=== PATIENT | male | born 1950 | race Caucasian/White ===

== ENCOUNTER 2025-06-15 21:46 | Inpatient (IN) | payer OTHER ==
[~2025-06-15] VITALS: Ht 188 cm; Wt 124.0 kg
--- NOTE | 2025-06-15 22:16 | ED.PDOC ---
History of Present Illness HPI Comments 75-year-old male who came to ER via EMS for urinary issues. Patient has a history of hypertension, diabetes and dyslipidemia. States for the past few days he has been having generalized weakness and urinary incontinence. Patient went to [place] urgent [facility] earlier, diagnostic tests were done, patient notes elevated troponin levels. Patient denies any chest pains or shortness a breath. Blood pressure upon arrival was 157/85 mm Hg Chief Complaint: Urinary Time Seen by MD: 22:15 Reviewed Notes: Nurses Notes Information Source: Patient Mode of Arrival: EMS Severity: Moderate Timing: Days Duration: Intermittent Prehospital treatment: None Past Medical History PAST MEDICAL HISTORY: DM, High Lipids, HTN Surgical History: Denies all surgeries Family History Family History: Reviewed,noncontributory to illness Social History Smoker: Non-Smoker Alcohol: Denies ETOH Use Drugs: Denies Drug Use Lives In: Home Constitutional: denies: chills, diaphoresis, fatigue, fever, malaise, sweats, weakness, others EENTM: denies: blurred vision, double vision, ear bleeding, ear discharge, ear drainage, ear pain, ear ringing, eye pain, eye redness, hearing loss, mouth pain, mouth swelling, nasal discharge, nose bleeding, nose congestion, nose pain, photophobia, tearing, throat pain, throat swelling, voice changes, others Respiratory: denies: cough, hemoptysis, orthopnea, SOB at rest, shortness of breath, SOB with excertion, stridor, wheezing, others Cardiovascular: denies: chest pain, dizzy spells, diaphoresis, Dyspnea on exertion, edema, irregular heart beat, left arm pain, lightheadedness, palpitations, PND, syncope, others Gastrointestinal: denies: abdomen distended, abdominal pain, blood streaked bowels, constipated, diarrhea, dysphagia, difficulty swallowing, hematemesis, melena, nausea, poor appetite, poor fluid intake, rectal bleeding, rectal pain, vomiting, others Genitourinary: reports: incontinence; denies: burning, dysuria, flank pain, frequency, hematuria, penile discharge, penile sore, pain, testicle pain, testicle swelling, urgency, others Neurological: reports: weakness; denies: dizziness, fainting, headache, left sided numbness, left sided weakness, numbness, paresthesia, pre-existing deficit, right sided numbness, right sided weakness, seizure, speech problems, tingling, tremors, others Musculoskeletal: denies: back pain, gout, joint pain, joint swelling, muscle pain, muscle stiffness, neck pain, others Integumetry: denies: bruises, change in color, change in hair/nails, dryness, laceration, lesions, lumps, rash, wounds, others Allergic/Immunocompromised: denies: Difficulty Healing, Frequent Infections, Hives, Itching, others Hematologic/Lymphatic: denies: anemia, blood clots, easy bleeding, easy bruising, swollen glands, others Endocrine: denies: excessive hunger, excessive sweating, excessive thirst, excessive urination, flushing, intolerance to cold, intolerance to heat, unexplained weight gain, unexplained weight loss, others Psychiatric: denies: anxiety, bipolar disorder, depression, hopeless, panic disorder, schizophrenia, sleepless, suicidal, others Physical Exam General Appearance: No Apparent Distress, Normal HEENT: Normal ENT Inspection, Pharynx Normal, TMs Normal Neck: Full Range of Motion, Non-Tender, Normal, Normal Inspection Respiratory: Chest Non-Tender, Lungs Clear, No Accessory Muscle Use, No Respiratory Distress, Normal Breath Sounds Cardiovascular: No Edema, No JVD, No Murmur, No Gallop, Normal Peripheral Pulses, Regular Rate/Rhythm Breast Exam: Deferred Gastrointestinal: No Organomegaly, Non Tender, No Pulsatile Mass, Normal Bowel Sounds, Soft Genitalia: Deferred Pelvic: Deferred Rectal: Deferred Extremities: No calf tenderness, Normal capillary refill, Normal inspection, Normal range of motion, Non-tender, No pedal edema Musculoskeletal : Apperance: Normal Neurologic: Alert, e d tech II-XII nml as Tested, No Motor Deficits, Normal Affect, Normal Mood, No Sensory Deficits Cerebellar Function: Normal Reflexes: Normal Skin: Dry, Normal Color, Warm Lymphatic: No Adenopathy Was a procedure done? Was a procedure done?: No Differential Dx Considerations may include: Urinary tract infection, urinary incontinence, NSTEMI, anxiety X-Ray, Labs, Meds, VS Vital Signs Date Time Temp Pulse Resp B/P (MAP) Pulse Ox O2 Delivery O2 Flow Rate FiO2 06/15/25 21:50 85 06/15/25 21:48 98.6 90 16 148/110 96 98.6 Lab Test 06/16/25 01:14 06/16/25 00:20 06/15/25 22:10 Range/Units Troponin I High Sensitivity 89 *H 83 *H 97 *H </=54 ng/L White Blood Count 6.8 4.4-10.8 10^3/uL Red Blood Count 4.45 L 4.5-5.90 10^6/uL Hemoglobin 13.8 13.5-17.5 g/dL Hematocrit 39.9 L 41.0-53.0 % Mean Corpuscular Volume 89.6 80.0-100.0 fL Mean Corpuscular Hemoglobin 31.0 28.0-32.0 pg Mean Corpuscular Hemoglobin Concent 34.6 32.0-36.0 g/dL Red Cell Distribution Width 15.0 H 11.8-14.3 % Platelet Count 183 140-450 10^3/uL Mean Platelet Volume 7.3 6.9-10.8 fL Neutrophils (%) (Auto) 56.2 37.0-80.0 % Lymphocytes (%) (Auto) 31.1 10.0-50.0 % Monocytes (%) (Auto) 10.6 0.0-12.0 % Eosinophils (%) (Auto) 1.7 0.0-7.0 % Basophils (%) (Auto) 0.4 0.0-2.0 % Neutrophils # (Auto) 3.8 1.6-8.6 10 ^3/uL Lymphocytes # (Auto) 2.1 0.4-5.4 10 ^3/uL Monocytes # (Auto) 0.7 0-1.3 10 ^3/uL Eosinophils # (Auto) 0.1 0-0.8 10 ^3/uL Basophils # (Auto) 0 0-0.2 10 ^3/uL Nucleated Red Blood Cells 0.0 % Sodium Level 142 136-145 mmol/L Potassium Level 3.7 3.5-5.1 mmol/L Chloride Level 105 98-107 mmol/L Carbon Dioxide Level 27 20-31 mmol/L Anion Gap 10 5-15 Blood Urea Nitrogen 19 9-23 mg/dL Creatinine 1.46 H 0.700-1.30 mg/dL Glomerular Filtration Rate Calc 49 >90 mL/min BUN/Creatinine Ratio 13.0 10.0-20.0 Serum Glucose 124 H 74-106 mg/dL Calcium Level 9.2 8.7-10.4 mg/dL Total Bilirubin 0.8 0.2-1.0 mg/dL Aspartate Amino Transferase (AST) 23 13-40 U/L Alanine Aminotransferase (ALT) 33 7-40 U/L Alkaline Phosphatase 84 46-116 U/L Total Protein 7.5 5.7-8.2 g/dL Albumin 4.6 3.2-4.8 g/dL Time of 1ST Reevaluation: 22:07 Reevaluation 1ST: Unchanged Patient Education/Counseling: Diagnosis, Treatment Family Education/Counseling: No Family Present Sepsis focused exam: focus exam completed, time: (0030) SEPSIS Sepsis Screen Physician Orders Urinalysis (06/15/25 22:05) Electrocardigram (06/15/25 22:05) Lactic Acid W/ Reflex Order (06/16/25 02:13) Blood Culture (06/16/25 02:13) Ceftriaxone 2gm/50ml D5w (Rocephin 2gm/5 (06/16/25 02:15) Vital Signs Date Time Temp Pulse Resp B/P (MAP) Pulse Ox O2 Delivery O2 Flow Rate FiO2 06/15/25 21:50 85 06/15/25 21:48 98.6 90 16 148/110 96 98.6 Laboratory Tests Test 06/15/25 22:10 White Blood Count 6.8 10^3/uL (4.4-10.8) Departure 1 Departure Time of Disposition: 02:18 Impression: Primary Impression: UTI (urinary tract infection) Additional Impression: Intermediate coronary syndrome Disposition: ADMITTED INPATIENT Admit to: Tele Condition: Guarded Discharged With: Self Comments 75-year-old male sent from the [place] [facility]. They found a UTI. They checked labs because he was feeling weak and noted that his troponin was elevated. The troponin and troponin is elevated at [facility]. I contacted [facility] and they reviewed the case in authorized the patient to be admitted at [facility]. I suspect possible secondary intermediate coronary syndrome with UTI. Patient was given IV fluids and IV Rocephin and aspirin. Critical Care Note Critical Care Time?: Yes (35 min-critical care time only) Critical care comment: Total critical care time: Approximately 36 minutes Due to a high probability of clinically significant, life threatening deterioration, the patient required my highest level of preparedness to intervene emergently and I personally spent this critical care time directly and personally managing the patient. This critical care time included obtaining a history; examining the patient; pulse oximetry; ordering and review of studies; arranging urgent treatment with development of a management plan; evaluation of patient's response to treatment; frequent reassessment; and, discussions with other providers. This critical care time was performed to assess and manage the high probability of imminent, life-threatening deterioration that could result in multi-organ failure. It was exclusive of separately billable procedures and treating other patients. Stability Stability form required: No Heart Score Heart Score: Heart Score Response (Comments) Value History Slightly Suspicious 0 EKG Normal 0 Age >65 2 Risk Factors 1 or 2 risk factors 1 Troponin 1-2 x's Normal limit 1 Total 4 I personally scribed for LARISSA LENTZ MD ([email or web address]) on 06/15/25 at 22:16. Electronically submitted by Thad Meier ([email or web address]). LARISSA LENTZ MD Jun 15, 2025 22:16
[2025-06-15 22:30] LABS: Hematocrit 39.9 % (41.0-53.0); Hemoglobin 13.8 g/dL (13.5-17.5); Mean Corpuscular Hemoglobin 31.0 pg (28.0-32.0); Mean Corpuscular Volume 89.6 fL (80.0-100.0); Nucleated Red Blood Cells % 0.0 %
[2025-06-15 22:51] LABS: Alanine Aminotransferase 33 U/L (7-40); Albumin 4.6 g/dL (3.2-4.8); Alkaline Phosphatase 84 U/L (46-116); Anion Gap 10 (5-15); BUN/Creatinine Ratio 13.0 (10.0-20.0); Bilirubin, Total 0.8 mg/dL (0.2-1.0); Blood Urea Nitrogen 19 mg/dL (9-23); Calcium 9.2 mg/dL (8.7-10.4); Carbon Dioxide 27 mmol/L (20-31); Chloride 105 mmol/L (98-107); Potassium 3.7 mmol/L (3.5-5.1); Sodium 142 mmol/L (136-145); Total Protein 7.5 g/dL (5.7-8.2)
[2025-06-15 22:55] LABS: Glucose 124 mg/dL (74-106)
[2025-06-15 23:45] VITALS: O2SAT 96
[2025-06-16] MEDS: SODIUM CHLORIDE 0.9% 1,000 ML IV ONE (02:50)
[2025-06-16] MEDS: cefTRIAXone 2GM/50ML D5W 50 ML IV ONE (02:59)
--- NOTE | 2025-06-16 05:16 | ECG ---
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
[2025-06-16] MEDS ORDERED: ONDANSETRON HCL 4 MG/2 ML VIAL IV PRN (05:30)
[2025-06-16] MEDS ORDERED: DOCUSATE SOD 100 MG CAP PO PRN (05:30)
[2025-06-16] MEDS ORDERED: NITROGLYCERIN 0.4 MG SL TAB SL PRN (05:30)
[2025-06-16] MEDS ORDERED: HYDROcodone-ACET 5/325MG TAB PO PRN (05:30)
[2025-06-16] MEDS ORDERED: DEXTROSE (50%) 50ML SYRG IV PRN (05:30)
[2025-06-16] MEDS ORDERED: MORPHINE SULFATE INJ 2 MG/ml SYRG IV PRN (05:30)
[2025-06-16] MEDS ORDERED: ACETAMINOPHEN 325 MG TAB PO PRN (05:30)
--- NOTE | 2025-06-16 05:35 | DVHHP2 ---
History of Present Illness Reason for Visit: Intermediate coronary syndrome History of Present Illness The patient is a 75-year-old male morbidly obese with past medical history of diabetes mellitus, hyperlipidemia, thyroid disease, and hypertension who presented to [facility] ED with complaint of urinary incontinence and generalized weakness. Patient reports he went to [place] urgent care earlier, diagnosed chest were done, noted elevated troponin levels. Patient was seen and evaluated in the ED, laboratory data shows WBC 6.8, platelets 183, sodium 142, potassium 3.7, BUN 19, creatinine 1.48, glucose 124, calcium 9.2, troponin 97, blood pressure 148/92, heart rate 85, temperature 98.6 F, O2 saturation 96% on room air. Please see medication orders section in the computer. On my assessment, patient denied chest pain, no headache, no dizziness, no diaphoresis, no shortness of breaths, no abdominal pain, no dysuria, no nausea, no vomiting, no fever, no chills. Patient was admitted for further evaluation and medical management. Past Medical History DM, High Lipids, HTN Past Surgical History Denies all surgeries Family History Reviewed, noncontributory to the management of this case. Past Social History The patient lives at home, denies smoking, alcohol or illicit drugs abuse. Review of Systems Constitutional: Yes: Weakness; No: Fever, Chills, Sweats, Malaise, Other Eyes: No: Pain, Vision change, Conjunctivae inflammation, Eyelid inflammation, Other, Redness ENT: No: Ear pain, Ear discharge, Nose pain, Nose discharge, Nose congestion, Mouth pain, Mouth swelling, Throat pain, Throat swelling, Other Respiratory: No: Cough, Dry, Shortness of breath, SOB with excertion, Wheezing, Hemoptysis, Pleuritic Pain, Sputum, Wheezing, Other Cardiovascular: No: Chest Pain, Palpitations, Orthopnea, Paroxysmal Noc. Dyspnea, Edema, Lt Headedness, Other Gastrointestinal: No: Nausea, Vomiting, Abdominal Pain, Diarrhea, Constipation, Melena, Hematochezia, Other Genitourinary: No Dysuria, No Frequency; Incontinence; No Hematuria, No Retention, No Other Musculoskeletal: No: other, neck pain, shoulder pain, arm pain, back pain, hand pain, leg pain, foot pain Skin: No: Rash, Lesions, Jaundice, Bruising, Other Neurological: No: Weakness, Numbness, Incoordination, Change in speech, Confusion, Seizures, Other Exam Vital Signs Vital Signs Date Time Temp Pulse Resp B/P (MAP) Pulse Ox O2 Delivery O2 Flow Rate FiO2 06/15/25 23:45 96 Room Air* 0 21 06/15/25 21:50 85 06/15/25 21:48 98.6 16 148/110 98.6 General Appearance: Alert, Oriented X3, Cooperative, No acute distress HEENT: Atraumatic, PERRLA, EOMI, Mucous membr. moist/pink Respiratory: Normal air movement Cardiovascular: Regular rate, Normal S1, Normal S2, No murmurs Abdominal: Normal bowel sounds, Soft, No tenderness, No hepatospenomegaly, No masses Extremities: No clubbing, No cyanosis, No edema, Normal pulses, No tenderness/swelling Skin: No rashes, No breakdown, No significant lesion Neuro: Normal speech, Normal tone, Sensation intact, Cranial nerves 3-12 NL, Reflexes 2+, Other (Generalized weakness) Psych/Mental Status: Mental status NL, Mood NL Labs/Xrays Labs Test 06/16/25 02:36 06/16/25 01:14 06/15/25 22:10 Range/Units Lactic Acid Level 0.8 0.4-2.0 mmol/L Troponin I High Sensitivity 89 *H </=54 ng/L White Blood Count 6.8 4.4-10.8 10^3/uL Red Blood Count 4.45 L 4.5-5.90 10^6/uL Hemoglobin 13.8 13.5-17.5 g/dL Hematocrit 39.9 L 41.0-53.0 % Mean Corpuscular Volume 89.6 80.0-100.0 fL Mean Corpuscular Hemoglobin 31.0 28.0-32.0 pg Mean Corpuscular Hemoglobin Concent 34.6 32.0-36.0 g/dL Red Cell Distribution Width 15.0 H 11.8-14.3 % Platelet Count 183 140-450 10^3/uL Mean Platelet Volume 7.3 6.9-10.8 fL Neutrophils (%) (Auto) 56.2 37.0-80.0 % Lymphocytes (%) (Auto) 31.1 10.0-50.0 % Monocytes (%) (Auto) 10.6 0.0-12.0 % Eosinophils (%) (Auto) 1.7 0.0-7.0 % Basophils (%) (Auto) 0.4 0.0-2.0 % Neutrophils # (Auto) 3.8 1.6-8.6 10 ^3/uL Lymphocytes # (Auto) 2.1 0.4-5.4 10 ^3/uL Monocytes # (Auto) 0.7 0-1.3 10 ^3/uL Eosinophils # (Auto) 0.1 0-0.8 10 ^3/uL Basophils # (Auto) 0 0-0.2 10 ^3/uL Nucleated Red Blood Cells 0.0 % Sodium Level 142 136-145 mmol/L Potassium Level 3.7 3.5-5.1 mmol/L Chloride Level 105 98-107 mmol/L Carbon Dioxide Level 27 20-31 mmol/L Anion Gap 10 5-15 Blood Urea Nitrogen 19 9-23 mg/dL Creatinine 1.46 H 0.700-1.30 mg/dL Glomerular Filtration Rate Calc 49 >90 mL/min BUN/Creatinine Ratio 13.0 10.0-20.0 Serum Glucose 124 H 74-106 mg/dL Calcium Level 9.2 8.7-10.4 mg/dL Total Bilirubin 0.8 0.2-1.0 mg/dL Aspartate Amino Transferase (AST) 23 13-40 U/L Alanine Aminotransferase (ALT) 33 7-40 U/L Alkaline Phosphatase 84 46-116 U/L Total Protein 7.5 5.7-8.2 g/dL Albumin 4.6 3.2-4.8 g/dL SEPSIS Sepsis Screen Date sepsis recognized/suspect: Jun 15, 2025 Time Sepsis recognized/suspect: 2147 Recent Procedure: No On Antibiotic Therapy: No Respiratory Rate >20: No Heart Rate >90: No Temp<36 C (96.8 F) or >38.3 C: No SBP <90 or MAP <65 mmHG: No New Acute Mental Status Change: No Is the patient on CPAP, BIPAP,: No Physician Orders Urinalysis (06/15/25 22:05) Blood Culture (06/16/25 02:13) Troponin-I Hs (06/16/25 06:00) Urine Bacterial Culture (06/16/25 05:18) Complete Blood Count (06/16/25 05:18) Comprehensive Metabolic Panel (06/16/25 05:18) Thyroid Stimulating Hormone (06/16/25 05:18) Ceftriaxone Ivpb Rocephin (06/16/25 09:00) Amlodipine Tablet (Norvasc Tablet) (06/16/25 10:00) Metoprolol Tartrate Tablet (Lopressor Ta (06/16/25 10:00) Atorvastatin (Lipitor) (06/16/25 22:00) Levothyroxine Tablet (Synthroid Tablet) (06/16/25 06:00) Lisinopril Tablet (Zestril Tablet) (06/16/25 10:00) Consistent Carb(Ccho)Diabetes (06/16/25 Breakfast) Glucose Blood (Accu-Chek Comfort Curve T (06/16/25 07:00) Mild Sliding Scale (06/16/25 07:00) Dextrose 50% Syringe (06/16/25 05:30) Admit (06/16/25 05:18) Allergies (06/16/25 05:18) Code Status (06/16/25 05:18) Sodium Chloride Lock (Saline Lock Ns) (06/16/25 06:00) Oxygen Per Hour (06/16/25 05:18) Hydrocodone-Acet 5/325mg Tab ([place] 5/32 (06/16/25 05:30) Ondansetron Hcl (Zofran) (06/16/25 05:30) Docusate Sodium Capsule (Colace Capsule) (06/16/25 05:30) Complete Blood Count (06/17/25 04:00) Comprehensive Metabolic Panel (06/17/25 04:00) Condition: Serious (06/16/25 05:18) Acetaminophen Tablet (Tylenol Tablet) (06/16/25 05:30) Bedrest With Bathroom Privileg (06/16/25 05:18) Sequential Compression Device (06/16/25 ) Nitroglycerin Sublingual (Ntrostat Subli (06/16/25 05:30) Morphine Sulfate Injection (06/16/25 05:30) Notify Md Of Changes From Base (06/16/25 05:18) Emergency Dysrhythmia Protocol (06/16/25 05:18) Oxygen By Nasal Cannula (06/16/25 05:18) Vital Signs Date Time Temp Pulse Resp B/P (MAP) Pulse Ox O2 Delivery O2 Flow Rate FiO2 06/15/25 23:45 96 Room Air* 0 21 06/15/25 21:50 85 06/15/25 21:48 98.6 90 16 148/110 96 98.6 Laboratory Tests Test 06/15/25 22:10 06/16/25 02:36 White Blood Count 6.8 10^3/uL (4.4-10.8) Lactic Acid Level 0.8 mmol/L (0.4-2.0) Medications Medications Dose Ordered Sig/Arsenio Route Start Time Stop Time Status Last Admin Dose Admin Aspirin 162 mg ONCE ONCE PO 06/16/25 00:45 06/16/25 00:46 DC 06/16/25 02:59 162 MG Ceftriaxone Sodium/Dextrose 50 ml @ 50 mls/hr ONCE ONCE IV 06/16/25 02:15 06/16/25 03:14 DC 06/16/25 02:59 50 MLS/HR Sodium Chloride 1,000 ml @ 1,000 mls/hr Q1H ONCE IV 06/16/25 02:30 06/16/25 03:29 DC 06/16/25 02:50 1,000 MLS/HR Assessment/Plan Assessment/Plan Intermediate coronary syndrome Hypertension UTI (urinary tract infection) Generalized weakness Plan 1. Admit to telemetry unit 2. Breathing treatment 3. Pain control management 4. IV antibiotic management 5. Management of fluids and electrolytes 6. Consultation for hospitalist 7. Diagnostic test chest x-ray 8. DVT prophylaxis as aspirin 9. Repeat labs CBC, CMP in a.m. 10. Home medication reviewed and reconciled 11. Continue with current medical management 12. Treatment plan discussed with patient and RN. Patient verbalized understanding. Plan discussed with: Patient, Other (RN) My Orders Orders - TOSHIA TUCKER DNP Procedure Category Date Status Time Urine Bacterial INES 06/16/25 Verified Culture 05:18 Complete Blood Count LAB 06/16/25 Verified 05:18 Comprehensive LAB 06/16/25 Verified Metabolic Panel 05:18 Thyroid Stimulating LAB 06/16/25 Verified Hormone 05:18 Ceftriaxone Ivpb PHA 06/16/25 Verified Rocephin 09:00 Amlodipine Tablet PHA 06/16/25 Verified (Norvasc Tablet) 10:00 Metoprolol Tartrate PHA 06/16/25 Verified Tablet (Lopressor Ta 10:00 Atorvastatin (Lipitor) PHA 06/16/25 Verified 22:00 Levothyroxine Tablet PHA 06/16/25 Verified (Synthroid Tablet) 06:00 Lisinopril Tablet PHA 06/16/25 Verified (Zestril Tablet) 10:00 Consistent DIET 06/16/25 Verified Carb(Ccho)Diabetes Breakfast Glucose Blood PHA 06/16/25 Verified (Accu-Chek Comfort 07:00 Mild Sliding Scale PHA 06/16/25 Verified 07:00 Dextrose 50% Syringe PHA 06/16/25 Verified 05:30 Admit ADMIT 06/16/25 Verified 05:18 Allergies MARIBELL 06/16/25 Verified 05:18 Code Status CODE 06/16/25 Verified 05:18 Sodium Chloride Lock PHA 06/16/25 Verified (Saline Lock Ns) 06:00 Oxygen Per Hour RT 06/16/25 Verified 05:18 Hydrocodone-Acet PHA 06/16/25 Verified 5/325mg Tab ([place] 05:30 Ondansetron Hcl PHA 06/16/25 Verified (Zofran) 05:30 Docusate Sodium [facility] 06/16/25 Verified Capsule (Colace 05:30 Complete Blood Count LAB 06/17/25 Verified 04:00 Comprehensive LAB 06/17/25 Verified Metabolic Panel 04:00 Condition: Serious [facility] 06/16/25 Verified 05:18 Acetaminophen Tablet PHA 06/16/25 Verified (Tylenol Tablet) 05:30 Bedrest With Bathroom [facility] 06/16/25 Verified Privileg 05:18 Sequential [facility] 06/16/25 Verified Compression Device Nitroglycerin [facility] 06/16/25 Verified Sublingual (Ntrostat 05:30 Morphine Sulfate [facility] 06/16/25 Verified Injection 05:30 Notify Md Of Changes [facility] 06/16/25 Verified From Base 05:18 Emergency Dysrhythmia [facility] 06/16/25 Verified Protocol 05:18 Oxygen By Nasal RT 06/16/25 Verified Cannula 05:18 Problem List: (1) Intermediate coronary syndrome (2) Hypertension (3) UTI (urinary tract infection) (4) Generalized weakness Date of Service: Jun 16, 2025 Billing Provider: TOSHIA TUCKER DNP Common Visit Codes: [id number] INP/OBS CARE (HIGH) TOSHIA TUCKER DNP Jun 16, 2025 05:35
[2025-06-16 05:44] LABS: Hematocrit 38.3 % (41.0-53.0); Hemoglobin 13.2 g/dL (13.5-17.5); Mean Corpuscular Hemoglobin 30.6 pg (28.0-32.0); Mean Corpuscular Volume 89.0 fL (80.0-100.0); Nucleated Red Blood Cells % 0.2 %
[2025-06-16 05:53] LABS: Alanine Aminotransferase 27 U/L (7-40); Albumin 4.0 g/dL (3.2-4.8); Alkaline Phosphatase 74 U/L (46-116); Anion Gap 12 (5-15); BUN/Creatinine Ratio 12.6 (10.0-20.0); Blood Urea Nitrogen 17 mg/dL (9-23); Carbon Dioxide 23 mmol/L (20-31); Potassium 3.6 mmol/L (3.5-5.1); Sodium 143 mmol/L (136-145); Total Protein 6.7 g/dL (5.7-8.2)
[2025-06-16 05:54] LABS: Bilirubin, Total 0.7 mg/dL (0.2-1.0); Calcium 8.5 mg/dL (8.7-10.4); Chloride 108 mmol/L (98-107); Glucose 113 mg/dL (74-106)
[2025-06-16] MEDS: InsuLIN REG 1unit/0.01ml Soln (100units/ml) SC SCH (06:29)
[2025-06-16] MEDS: LEVOTHYROXINE SODIUM 50 MCG TAB PO SCH (06:31)
[2025-06-16] MEDS: SODIUM CHLOR 0.9% PF (SALINE LOCK) 10ML VIAL/SYR IV SCH (06:32)
[2025-06-16] MEDS: ACCU-CHEK COMFORT CURVE STRIP VI SCH (06:35)
--- NOTE | 2025-06-16 06:58 | ECG ---
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
[2025-06-16 07:30] VITALS: PULSE 71; RESP 17; O2SAT 94
[2025-06-16] MEDS: METOPROLOL TARTRATE 25 MG TAB PO SCH (09:23)
[2025-06-16] MEDS: LISINOPRIL 20 MG TAB PO SCH (09:23)
--- NOTE | 2025-06-16 12:56 | DVHPN2 ---
Subjective Patient continues to report having urinary incontinence. Reviewed: Care Plan, H&P, Labs, Medications Changes from previous H/P or p: No Changes General: Per HPI Eyes: No Pain, No Vision change, No Conjunctivae inflammation, No Eyelid inflammation, No Other, No Redness ENT: No Ear pain, No Ear discharge, No Nose pain, No Nose discharge, No Nose congestion, No Mouth pain, No Mouth swelling, No Throat pain, No Throat swelling, No Other Cardiovascular: No Chest Pain, No Palpitations, No Orthopnea, No Paroxysmal Noc. Dyspnea, No Edema, No Lt Headedness, No Other Respiratory: No Cough, No Dry, No Shortness of breath, No SOB with excertion, No Wheezing, No Hemoptysis, No Pleuritic Pain, No Sputum, No Other Gastrointestinal: No Nausea, No Vomiting, No Abdominal Pain, No Diarrhea, No Constipation, No Melena, No Hematochezia, No Other Genitourinary: No Dysuria, No Frequency; Incontinence; No Hematuria, No Retention, No Other Musculoskeletal: No other, No neck pain, No shoulder pain, No arm pain, No back pain, No hand pain, No leg pain, No foot pain Skin: No Rash, No Lesions, No Jaundice, No Bruising, No Other Objective Vitals Vital Signs Date Time Temp Pulse Resp B/P (MAP) Pulse Ox O2 Delivery O2 Flow Rate FiO2 06/16/25 10:23 69 138/81 06/16/25 10:00 18 96 06/16/25 08:00 Room Air* 0 21 06/16/25 07:00 98.0 98.0 Intake/Output Intake and Output 06/16/25 07:00 Intake Total 1050 ml Balance 1050 ml Intake IV Total 1050 ml General Appearance: Alert, Oriented X3, Cooperative, No acute distress HEENT: Atraumatic, PERRLA Cardiovascular: Normal S1, Normal S2 Abdomen: Normal bowel sounds, Soft, No tenderness, No hepatospenomegaly, No masses Genitourinary: No Apparent Abnormalities Musculoskeletal: Normal sensory function, Normal motor function Neuro: Normal gait, Normal speech Skin: Dry, Intact Psych/Mental Status: Mental status NL, Mood NL Medications Current Medications Medications Dose Ordered Sig/Arsenio Route Start Time Stop Time Status Last Admin Dose Admin Ceftriaxone Sodium 50 ml @ 100 mls/hr DAILY@09 IV 06/17/25 09:00 Amlodipine Besylate 5 mg DAILY PO 06/16/25 10:00 06/16/25 09:23 5 MG Metoprolol Tartrate 25 mg BID PO 06/16/25 10:00 06/16/25 09:23 25 MG Atorvastatin Calcium 20 mg HS PO 06/16/25 22:00 Levothyroxine Sodium 175 mcg QAM@0600 PO 06/16/25 06:00 06/16/25 06:31 175 MCG Lisinopril 20 mg DAILY PO 06/16/25 10:00 06/16/25 09:23 20 MG Diagnostic Test (Pha) 1 strip ACHS 06/16/25 07:00 06/16/25 06:35 1 STRIP Insulin Human Regular ACHS SC 06/16/25 07:00 06/16/25 06:29 2 UNITS Dextrose 50 ml UD PRN IV 06/16/25 05:30 Sodium Chloride 10 ml Q8HR IV 06/16/25 06:00 06/16/25 06:32 10 ML Acetaminophen/ Hydrocodone Bitart 1 tab Q4HP PRN PO 06/16/25 05:30 Ondansetron HCl 4 mg Q4HP PRN IV 06/16/25 05:30 Docusate Sodium 100 mg BIDPRN PRN PO 06/16/25 05:30 Acetaminophen 650 mg Q6HP PRN PO 06/16/25 05:30 Nitroglycerin 0.4 mg Q5MINP PRN SL 06/16/25 05:30 Morphine Sulfate 2 mg Q30M PRN IV 06/16/25 05:30 Aspirin 81 mg DAILY PO 06/17/25 10:00 Laboratory Results Laboratory Tests 06/16/25 01:14 Chemistry Test 06/15/25 22:10 06/16/25 01:14 Albumin 4.6 g/dL (3.2-4.8) 4.0 g/dL (3.2-4.8) Calcium Level 9.2 mg/dL (8.7-10.4) 8.5 mg/dL (8.7-10.4) L Total Protein 7.5 g/dL (5.7-8.2) 6.7 g/dL (5.7-8.2) LFT Test 06/15/25 22:10 06/16/25 01:14 Alanine Aminotransferase (ALT) 33 U/L (7-40) 27 U/L (7-40) Alkaline Phosphatase 84 U/L (46-116) 74 U/L (46-116) Aspartate Amino Transferase (AST) 23 U/L (13-40) 20 U/L (13-40) Total Bilirubin 0.8 mg/dL (0.2-1.0) 0.7 mg/dL (0.2-1.0) HgA1c, TSH Test 06/16/25 01:14 Thyroid Stimulating Hormone (TSH) 2.74 uIU/mL (0.55-4.78) Labs and/or images reviewed: Labs reviewed by me, Image(s) reviewed by me Assessment/Plan Assessment/Plan Impression: -rule out ACS -urinary incontinence, with incomplete bladder emptying -diabetes mellitus -primary hypertension -dyslipidemia Plan: -echocardiogram -bladder scan -PSA -CT scan of the abdomen and pelvis -Hunt catheter placement with high bladder residuals post voiding -regular insulin sliding scale -continue ACS protocol -unstable to transfer to [facility] until cardiology has cleared patient Total time spent with patient discussing and formulating plan of care: 35 minutes. This medical document was created using an electronic medical record system with Crew dictation system. Although this document has been carefully reviewed, there may still be some phonetic and typographical errors. These areas are purely typographical due to imperfections of the software programs, and do not reflect any compromise in the patient's medical care. Plan discussed with: Patient, Other (RN) My Orders Orders - RYAN FAIR NP Procedure Category Date Status Time Bladder Scan ED NURSING 06/16/25 Transmitted Psa Total+% Free LAB 06/16/25 Logged 12:48 Ct Ab Pel Wo Con-No CT 06/16/25 Logged Oral Or Iv 12:48 Echo 2d Mode Cardiac US 06/16/25 Logged DOP 12:48 * Hand Or Machine Paster CONS 06/16/25 Transmitted Consult Creatine Kinase LAB 06/16/25 Logged 12:48 Erythrocyte LAB 06/16/25 Logged Sedimentation Rate 12:48 C-Reactive Protein LAB 06/16/25 Logged 12:48 Date of Service: Jun 16, 2025 Billing Provider: RYAN FAIR NP Common Visit Codes: [id number] INP/OBS CARE(HIGH) RYAN FAIR NP Jun 16, 2025 12:56
[2025-06-16 13:16] LABS: Creatine Kinase IFCC 102.0 U/L (46-171)
--- NOTE | 2025-06-16 13:46 | DVH ---
Exam: CT CT AB PEL WO CON-NO ORAL OR IV History: Rule out urinary obstruction Comparison Study: None Technique: Multidetector spiral CT of the abdomen was performed from lung bases to pubic symphysis. Imaging was performed without IV contrast. Axial, coronal and sagittal multiplanar reformats were ob tained from the axial data set by the technologist. Radiation Dose : 1. Abdomen/Pelvis: CTDIvol 25.82 mGy, DLP 1490 mGy*cm. Findings: Evaluation of solid organs is limited due to lack of intravenous contrast use. Lung Bases: No acute or significant lung base finding. Normal heart size. No pleural or pericardial effusion. Liver: The liver is normal in size. No focal lesions. Gallbladder and Biliary Tree: Cholelithiasis noted without secondary findings of cholecystitis or elba iary obstruction. Spleen: Unremarkable Pancreas: The pancreas is grossly normal in appearance. Adrenal Glands: Unremarkable Kidneys: 2 stones are seen in the right kidney, the largest measuring up 1.8 cm in the renal pelvis. Mild right-sided hydronephrosis. Right-sided pyelonephritis. Unremarkable left kidney. Bladder: Grossly unremarkable for degree of distention. Bowel: The stomach is grossly normal in appearance. Small bowel and colon are normal in caliber and d istribution. The appendix is not visualized; however, no secondary findings of acute appendicitis id entified. Ascites: Absent Lymphadenopathy: No mesenteric, retroperitoneal or periportal lymphadenopathy. Abdominal Wall and Mesentery: Unremarkable. Vasculature: The visualized abdominal aorta is normal in size and caliber. Evaluation of abdominal a nd pelvic vessels is limited due to lack of intravenous contrast. Pelvic Organs: Unremarkable Musculoskeletal: No aggressive focal bony lesions, acute fractures or dislocation. IMPRESSION: 1. 2 stones are seen in the right kidney, the largest measuring up 1.8 cm in the renal pelvis. Mild right-sided hydronephrosis. 2. Right-sided pyelonephritis. Radiation optimization: All CT scans at this facility use at least one of these dose optimization kajal hniques: automated exposure control mA and/or kV adjustment per patient size (includes targeted exam s where dose is matched to clinical indication) or iterative reconstruction.
[2025-06-16 15:06] LABS: Urine Protein, UAD TRACE (Negative); Urine WBC Clumps PRESENT /hpf (None Seen)
--- NOTE | 2025-06-16 17:59 | DVHINCON2 ---
Date Seen: Jun 16, 2025 Referring Physician MABEL Mckeon Reason for Consultation Rule out ACS History of Present Illness A 75-year-old with a history of hypertension, type 2 diabetes mellitus, hyperlipidemia, chronic kidney disease stage 3, hypothyroidism, and obesity presented to the ED with complaint of generalized weakness and urinary incontinence. He states the weakness developed gradually over the past day and was associated with difficulty ambulating, prompting evaluation. He denies chest pain, shortness of breath, palpitations, dizziness, diaphoresis, or syncope. There is no history of recent illness, fever, or trauma. He denies any prior myocardial infarction or history of congestive heart failure. Upon arrival, serial troponins were noted to be elevated (97/83/89/88 ng/L), without a clear rising or falling pattern. A 12 lead ECG showed normal sinus rhythm with no evidence of acute ischemia. Cardiology was consulted to evaluated for possible NSTEMI. An echocardiogram is currently pending. Past Medical History As stated in HPI Past Surgical History Denies Family History: Patient reports no known family medical history. Family History Reviewed, non-contributory to the management of this case. Social History The patient lives at home, denies smoking, alcohol or illicit drugs abuse. Allergies: Coded Allergies: NO KNOWN ALLERGIES (Unverified , 06/16/25) VERIFIED Home Meds Unable to Obtain Active Prescriptions or Reported Meds Current Medications Current Medications Medications (Trade) Dose Ordered Sig/Arsenio Route PRN Reason Start Time Stop Time Status Last Admin Ceftriaxone Sodium 50 ml @ 100 mls/hr DAILY@09 IV 06/17/25 09:00 Amlodipine Besylate (Norvasc Tablet) 5 mg DAILY PO 06/16/25 10:00 06/16/25 09:23 Metoprolol Tartrate (Lopressor Tablet) 25 mg BID PO 06/16/25 10:00 06/16/25 09:23 Atorvastatin Calcium (Lipitor) 20 mg HS PO 06/16/25 22:00 Levothyroxine Sodium (Synthroid Tablet) 175 mcg QAM@0600 PO 06/16/25 06:00 06/16/25 06:31 Lisinopril (Zestril Tablet) 20 mg DAILY PO 06/16/25 10:00 06/16/25 09:23 Diagnostic Test (Pha) (Accu-Chek Comfort Curve T) 1 strip ACHS 06/16/25 07:00 06/16/25 16:45 Insulin Human Regular (InsuLIN R) ACHS SC 06/16/25 07:00 06/16/25 17:11 Dextrose 50 ml UD PRN IV Blood Sugar LESS THAN 60 06/16/25 05:30 Sodium Chloride (Saline Lock Ns) 10 ml Q8HR IV 06/16/25 06:00 06/16/25 14:22 Acetaminophen/ Hydrocodone Bitart (Etters 5/325MG Tab) 1 tab Q4HP PRN PO MODERATE PAIN (4-6 PAIN SCALE) 06/16/25 05:30 Ondansetron HCl (Zofran) 4 mg Q4HP PRN IV NAUSEA / VOMITING 06/16/25 05:30 Docusate Sodium (Colace Capsule) 100 mg BIDPRN PRN PO FOR CONSTIPATION 06/16/25 05:30 Acetaminophen (Tylenol Tablet) 650 mg Q6HP PRN PO PAIN SCALE 1-3 OR TEMP>100.4 06/16/25 05:30 Nitroglycerin (Ntrostat Sublingual) 0.4 mg Q5MINP PRN SL FOR CHEST PAIN 06/16/25 05:30 Morphine Sulfate 2 mg Q30M PRN IV FOR CHEST PAIN 06/16/25 05:30 Aspirin 81 mg DAILY PO 06/17/25 10:00 Review of Systems Constitutional: No symptom reported Ears, Nose, & Throat: No symptom reported Eyes: No symptom reported Neurological: Generalized weakness, denies headaches, dizziness, or syncope. Pulmonary/Respiratory: No symptom reported Cardiovascular: No symptom reported Gastrointestinal: No symptom reported Genitourinary: No symptom reported Musculoskeletal: No symptom reported Skin: No symptom reported Psychiatric: No symptom reported Endocrine: No symptom reported Hemotologic/Lymphatic: No symptom reported Vital Signs Vital Signs Date Time Temp Pulse Resp B/P (MAP) Pulse Ox O2 Delivery O2 Flow Rate FiO2 06/16/25 16:38 Room Air* 0 21 06/16/25 16:08 97.6 72 18 132/80 (97) 96 97.6 Physical Exam INITIAL VITAL SIGNS: Reviewed by me GENERAL: Alert and interactive. No acute distress. HEAD: Head is normocephalic and atraumatic. EYES: EOMI, PERRL. No scleral icterus. No conjunctival injection. ENT: Moist mucous membranes. NECK: Supple, No masses, Full range of motion. RESPIRATORY: No tachypnea. Clear breath sounds bilaterally. No wheezing, rales, rhonchi. CV: Regular rate and rhythm. No murmurs, no edema, no dyspnea GI/: Active bowel sounds, soft, nondistended, nontender. No guarding. No rebound. No masses. No CVA tenderness. INTEGUMENTARY: Warm and dry. No obvious rashes. NEUROLOGIC: Alert and oriented. Face is symmetric. Speech is normal. Moves all extremities equally. Labs/Diagnostic Data Labs Test 06/16/25 16:31 06/16/25 14:30 06/16/25 10:30 06/16/25 02:36 Range/Units POC Glucose 264 H 70-106 mg/dl Urine Color Colorless Yellow Urine Clarity Turbid H Clear Urine pH 6.5 5.0-9.0 Urine Specific Reedy 1.013 1.001-1.035 Urine Protein Trace H Negative Urine Ketones Negative Negative Urine Blood 2+ H Negative /uL Urine Nitrite 2+ H Negative Urine Bilirubin Negative Negative Urine Urobilinogen Normal Negative mg/dL Urine Leukocyte Esterase 3+ Negative /uL Urine RBC 90 0 - 3 /hpf Urine WBC Clumps Present None Seen /hpf Urine Microscopic WBC 263 H 0-3 /HPF Urine Squamous Epithelial Cells Few <5 /hpf Urine Bacteria Many H None Seen /hpf Urine Mucus Few None Seen Urine Glucose Normal Normal mg/dL Erythrocyte Sedimentation Rate 18 0-20 mm/hr Creatine Kinase 102 46-171 U/L Troponin I High Sensitivity 88 *H </=54 ng/L C-Reactive Protein High Sensitivity 5.29 H <1.0 mg/dL Lactic Acid Level 0.8 0.4-2.0 mmol/L Test 06/16/25 01:14 Range/Units White Blood Count 5.8 4.4-10.8 10^3/uL Red Blood Count 4.30 L 4.5-5.90 10^6/uL Hemoglobin 13.2 L 13.5-17.5 g/dL Hematocrit 38.3 L 41.0-53.0 % Mean Corpuscular Volume 89.0 80.0-100.0 fL Mean Corpuscular Hemoglobin 30.6 28.0-32.0 pg Mean Corpuscular Hemoglobin Concent 34.4 32.0-36.0 g/dL Red Cell Distribution Width 15.1 H 11.8-14.3 % Platelet Count 177 140-450 10^3/uL Mean Platelet Volume 8.1 6.9-10.8 fL Neutrophils (%) (Auto) 55.5 37.0-80.0 % Lymphocytes (%) (Auto) 33.2 10.0-50.0 % Monocytes (%) (Auto) 9.4 0.0-12.0 % Eosinophils (%) (Auto) 1.3 0.0-7.0 % Basophils (%) (Auto) 0.6 0.0-2.0 % Neutrophils # (Auto) 3.2 1.6-8.6 10 ^3/uL Lymphocytes # (Auto) 1.9 0.4-5.4 10 ^3/uL Monocytes # (Auto) 0.5 0-1.3 10 ^3/uL Eosinophils # (Auto) 0.1 0-0.8 10 ^3/uL Basophils # (Auto) 0 0-0.2 10 ^3/uL Nucleated Red Blood Cells 0.2 % Sodium Level 143 136-145 mmol/L Potassium Level 3.6 3.5-5.1 mmol/L Chloride Level 108 H 98-107 mmol/L Carbon Dioxide Level 23 20-31 mmol/L Anion Gap 12 5-15 Blood Urea Nitrogen 17 9-23 mg/dL Creatinine 1.35 H 0.700-1.30 mg/dL Glomerular Filtration Rate Calc 54 >90 mL/min BUN/Creatinine Ratio 12.6 10.0-20.0 Serum Glucose 113 H 74-106 mg/dL Calcium Level 8.5 L 8.7-10.4 mg/dL Total Bilirubin 0.7 0.2-1.0 mg/dL Aspartate Amino Transferase (AST) 20 13-40 U/L Alanine Aminotransferase (ALT) 27 7-40 U/L Alkaline Phosphatase 74 46-116 U/L Total Protein 6.7 5.7-8.2 g/dL Albumin 4.0 3.2-4.8 g/dL Thyroid Stimulating Hormone (TSH) 2.74 0.55-4.78 uIU/mL PROCEDURE(s): ABPL - CT AB PEL WO CON-NO ORAL OR IV REASON: Rule out urinary obstruction ORDER NUMBER(s): [id number], ACCESSION NUMBER(s): [id number] Exam: CT CT AB PEL WO CON-NO ORAL OR IV History: Rule out urinary obstruction Comparison Study: None Technique: Multidetector spiral CT of the abdomen was performed from lung bases to pubic symphysis. Imaging was performed without IV contrast. Axial, coronal and sagittal multiplanar reformats were obtained from the axial data set by the technologist. Radiation Dose : 1. Abdomen/Pelvis: CTDIvol 25.82 mGy, DLP 1490 mGy*cm. Findings: Evaluation of solid organs is limited due to lack of intravenous contrast use. Lung Bases: No acute or significant lung base finding. Normal heart size. No pleural or pericardial effusion. Liver: The liver is normal in size. No focal lesions. Gallbladder and Biliary Tree: Cholelithiasis noted without secondary findings of cholecystitis or biliary obstruction. Spleen: Unremarkable Pancreas: The pancreas is grossly normal in appearance. Adrenal Glands: Unremarkable Kidneys: 2 stones are seen in the right kidney, the largest measuring up 1.8 cm in the renal pelvis. Mild right-sided hydronephrosis. Right-sided pyelonephri tis. Unremarkable left kidney. Bladder: Grossly unremarkable for degree of distention. Bowel: The stomach is grossly normal in appearance. Small bowel and colon are normal in caliber and distribution. The appendix is not visualized; however, no secondary findings of acute appendicitis identified. Ascites: Absent Lymphadenopathy: No mesenteric, retroperitoneal or periportal lymphadenopathy. Abdominal Wall and Mesentery: Unremarkable. Vasculature: The visualized abdominal aorta is normal in size and caliber. Evaluation of abdominal and pelvic vessels is limited due to lack of intravenous contrast. Pelvic Organs: Unremarkable Musculoskeletal: No aggressive focal bony lesions, acute fractures or dislocation. IMPRESSION: 1. 2 stones are seen in the right kidney, the largest measuring up 1.8 cm in the renal pelvis. Mild right-sided hydronephrosis. 2. Right-sided pyelonephritis. Assessment NSTEMI to rule out CAD Rule out acute coronary syndrome Hypertension Type 2 diabetes Hyperlipidemia CKD Hypothyroidism Obesity Plan/Recommendation (Dr. Pabon): * Continue telemetry monitoring * Trend troponins (already plateauing) * Echocardiogram pending - to assess for LV function and wall motion abnormalities * Cardiolite adenosine stress test to evaluate for inducible ischemia * Optimize medical therapy for CAD risk factors This medical document was created using an electronic medical record system with voice recognition software and computerized dictation system. Although this document has been carefully reviewed, there might still be some phonetic and typographical errors. Occasional wrong-word or ``sound-alike substitutions may have occurred due to the inherent limitations of voice recognition software. These areas are purely typographical due to imperfections of the software programs and do not reflect any compromise in the patient's medical care. Please read the chart carefully and recognize, using context, where these substitutions have occurred. Plan discussed with: Patient Plan discussed with: Patient NYHA Physical activity limitations: NA Date of Service: Jun 16, 2025 Billing Provider: JENNIFFER PABON MD Cardiology Common Codes: CONSULT ONLY Cardiology Consultation Codes: [id number] CONSULT <45MIN YARELI CACERES [employer] Jun 16, 2025 17:59
[2025-06-16 18:50] LABS: Triglycerides 104 mg/dL (< 150)
[2025-06-16 18:52] LABS: Cholesterol 120 mg/dL (< 200)
[2025-06-16 18:57] LABS: HDL Cholesterol 37 mg/dL (40-59)
--- NOTE | 2025-06-16 19:13 | DVH ---
CHEST RADIOGRAPH REASON FOR EXAM: nstemi COMPARISON: None TECHNIQUE: One view of the chest is provided FINDINGS: The cardiomediastinal silhouette is within normal limits for size. There are very low insp iratory volumes causing crowding and exaggeration of the pulmonary markings. There is no lobar conso lidation. There is a right neck catheter with the tip projecting over the right atrium. There is no s ignificant pleural effusion. There is no pneumothorax. No acute osseous abnormality is identified. IMPRESSION: Very low inspiratory volumes cause crowding and exaggeration of the pulmonary markings. No lobar cons olidation.
[2025-06-16 20:00] VITALS: PULSE 83; PULSE 86; RESP 18
[2025-06-16 20:39] LABS: INR 0.97 (0.9-1.15); Partial Thromboplastin Time 26.4 SEC (24.5-34.5); Prothrombin Time 10.3 sec (9.3-11.8)
--- NOTE | 2025-06-16 20:54 | DVHSR ---
APPROVED REPORT EXAM: LIMITED Two-dimensional and M-mode echocardiogram with Doppler and color Doppler. Blood Pressure: 138/81 mmHg INDICATION ACS RISK FACTORS Obesity: Height: 6' 2", Weight: 220 DIMENSIONS LVDd4.3 (3.8-5.7cm)LA (2D)4.0 (1.9-4.0cm)Aortic Root3.8 (2.0-3.7cm) LVDs3.0 (2.5-4.0cm)LA (MM) (1.9-4.0cm)Aortic Cusp Exc1.8 (1.5-2.0cm) EF (%) 56.0 (55-70%)Rt. Atrium3.5 (1.9-4.0cm)Asc. Aorta cm IVSd1.2 (0.7-1.1cm)RV (D) (1.8-2.4cm) PWd1.2 (0.7-1.1cm) Mitral Valve MitralMitral Stenosis E wave0.50m/sMV Mean GR.mmHg A wave1.00m/sMV Peak GR.mmHg E/A ratio0.52D MVAcm2 Aortic Valve Aortic ValveAortic Stenosis V11.10m/Loyd Mean GR.3mmHg V21.20m/Loyd Peak GR.6mmHg LVOT Diameter2.5 (1.8-2.4cm)Doppler AVA4.50cm2 Other Information Quality : Technically LimitedRhythm : Technically limited study due to body habitus. Conclusion LV EF IS 56% AND IS NORMAL MILD LVH AND MILD LV DIASTOLIC DYSFUNCTION NORMAL VALVES NORMAL RV FUNCTION NO EFFUSION
[2025-06-16 21:00] VITALS: BP 156/93; PULSE 83; RESP 18; TEMP 98.1; O2SAT 97
[2025-06-16] MEDS: ATORVASTATIN 20 MG TAB PO SCH (22:26)
--- NOTE | 2025-06-16 23:27 | DVHINCON2 ---
Date Seen: Jun 16, 2025 Referring Physician MABEL Mckeon Reason for Consultation Rule out ACS History of Present Illness This is a 75-year-old male with a past medical history of hypertension, type 2 diabetes mellitus, hyperlipidemia, chronic kidney disease stage 3, hypothyroidism, and obesity presented to the ED with complaint of generalized weakness and urinary incontinence. Patient states the weakness developed gradually over the past day and was associated with difficulty ambulating, prompting evaluation. He denies chest pain, shortness of breath, palpitations, dizziness, diaphoresis, or syncope. There is no history of recent illness, fever, or trauma. He denies any prior myocardial infarction or history of congestive heart failure. Upon arrival, serial troponins were noted to be elevated (97/83/89/88 ng/L), without a clear rising or falling pattern. A 12 lead ECG showed normal sinus rhythm with no evidence of acute ischemia. Cardiology was consulted to evaluated for possible NSTEMI. An echocardiogram is currently pending. Past Medical History As stated in HPI Past Surgical History Denies Family History: Patient reports no known family medical history. Allergies: Coded Allergies: NO KNOWN ALLERGIES (Unverified , 06/16/25) VERIFIED Home Meds Unable to Obtain Active Prescriptions or Reported Meds Current Medications Current Medications Medications (Trade) Dose Ordered Sig/Arsenio Route PRN Reason Start Time Stop Time Status Last Admin Ceftriaxone Sodium 50 ml @ 100 mls/hr DAILY@09 IV 06/17/25 09:00 Amlodipine Besylate (Norvasc Tablet) 5 mg DAILY PO 06/16/25 10:00 06/16/25 09:23 Metoprolol Tartrate (Lopressor Tablet) 25 mg BID PO 06/16/25 10:00 06/16/25 09:23 Atorvastatin Calcium (Lipitor) 20 mg HS PO 06/16/25 22:00 Levothyroxine Sodium (Synthroid Tablet) 175 mcg QAM@0600 PO 06/16/25 06:00 06/16/25 06:31 Lisinopril (Zestril Tablet) 20 mg DAILY PO 06/16/25 10:00 06/16/25 09:23 Diagnostic Test (Pha) (Accu-Chek Comfort Curve T) 1 strip ACHS 06/16/25 07:00 06/16/25 16:45 Insulin Human Regular (InsuLIN R) ACHS SC 06/16/25 07:00 06/16/25 17:11 Dextrose 50 ml UD PRN IV Blood Sugar LESS THAN 60 06/16/25 05:30 Sodium Chloride (Saline Lock Ns) 10 ml Q8HR IV 06/16/25 06:00 06/16/25 14:22 Acetaminophen/ Hydrocodone Bitart ([place] 5/325MG Tab) 1 tab Q4HP PRN PO MODERATE PAIN (4-6 PAIN SCALE) 06/16/25 05:30 Ondansetron HCl (Zofran) 4 mg Q4HP PRN IV NAUSEA / VOMITING 06/16/25 05:30 Docusate Sodium (Colace Capsule) 100 mg BIDPRN PRN PO FOR CONSTIPATION 06/16/25 05:30 Acetaminophen (Tylenol Tablet) 650 mg Q6HP PRN PO PAIN SCALE 1-3 OR TEMP>100.4 06/16/25 05:30 Nitroglycerin (Ntrostat Sublingual) 0.4 mg Q5MINP PRN SL FOR CHEST PAIN 06/16/25 05:30 Morphine Sulfate 2 mg Q30M PRN IV FOR CHEST PAIN 06/16/25 05:30 Aspirin 81 mg DAILY PO 06/17/25 10:00 Review of Systems Constitutional: No symptom reported Ears, Nose, & Throat: No symptom reported Eyes: No symptom reported Neurological: Generalized weakness, denies headaches, dizziness, or syncope. Pulmonary/Respiratory: No symptom reported Cardiovascular: No symptom reported Gastrointestinal: No symptom reported Genitourinary: No symptom reported Musculoskeletal: No symptom reported Skin: No symptom reported Psychiatric: No symptom reported Endocrine: No symptom reported Hemotologic/Lymphatic: No symptom reported Vital Signs Vital Signs Date Time Temp Pulse Resp B/P (MAP) Pulse Ox O2 Delivery O2 Flow Rate FiO2 06/16/25 16:38 Room Air* 0 21 06/16/25 16:08 97.6 72 18 132/80 (97) 96 97.6 Physical Exam GENERAL: Alert and oriented x 3. No acute distress. EYES: PERRL, EOMI. Anicteric. HENT: Moist mucous membranes. LUNGS: Clear to auscultation bilaterally. CARDIOVASCULAR: Regular rate and rhythm. ABDOMEN: Soft, nontender and nondistended. EXTREMITIES: No edema. NEUROLOGIC: No focal neurological deficits. SKIN: Warm, dry. Labs/Diagnostic Data Labs Test 06/16/25 16:31 06/16/25 14:30 06/16/25 10:30 06/16/25 02:36 Range/Units POC Glucose 264 H 70-106 mg/dl Urine Color Colorless Yellow Urine Clarity Turbid H Clear Urine pH 6.5 5.0-9.0 Urine Specific [place] 1.013 1.001-1.035 Urine Protein Trace H Negative Urine Ketones Negative Negative Urine Blood 2+ H Negative /uL Urine Nitrite 2+ H Negative Urine Bilirubin Negative Negative Urine Urobilinogen Normal Negative mg/dL Urine Leukocyte Esterase 3+ Negative /uL Urine RBC 90 0 - 3 /hpf Urine WBC Clumps Present None Seen /hpf Urine Microscopic WBC 263 H 0-3 /HPF Urine Squamous Epithelial Cells Few <5 /hpf Urine Bacteria Many H None Seen /hpf Urine Mucus Few None Seen Urine Glucose Normal Normal mg/dL Erythrocyte Sedimentation Rate 18 0-20 mm/hr Creatine Kinase 102 46-171 U/L Troponin I High Sensitivity 88 *H </=54 ng/L C-Reactive Protein High Sensitivity 5.29 H <1.0 mg/dL Triglycerides Level 104 < 150 mg/dL Cholesterol Level 120 < 200 mg/dL LDL Cholesterol 66 < 100 mg/dL HDL Cholesterol 37 L 40-59 mg/dL Lactic Acid Level 0.8 0.4-2.0 mmol/L Test 06/16/25 01:14 Range/Units White Blood Count 5.8 4.4-10.8 10^3/uL Red Blood Count 4.30 L 4.5-5.90 10^6/uL Hemoglobin 13.2 L 13.5-17.5 g/dL Hematocrit 38.3 L 41.0-53.0 % Mean Corpuscular Volume 89.0 80.0-100.0 fL Mean Corpuscular Hemoglobin 30.6 28.0-32.0 pg Mean Corpuscular Hemoglobin Concent 34.4 32.0-36.0 g/dL Red Cell Distribution Width 15.1 H 11.8-14.3 % Platelet Count 177 140-450 10^3/uL Mean Platelet Volume 8.1 6.9-10.8 fL Neutrophils (%) (Auto) 55.5 37.0-80.0 % Lymphocytes (%) (Auto) 33.2 10.0-50.0 % Monocytes (%) (Auto) 9.4 0.0-12.0 % Eosinophils (%) (Auto) 1.3 0.0-7.0 % Basophils (%) (Auto) 0.6 0.0-2.0 % Neutrophils # (Auto) 3.2 1.6-8.6 10 ^3/uL Lymphocytes # (Auto) 1.9 0.4-5.4 10 ^3/uL Monocytes # (Auto) 0.5 0-1.3 10 ^3/uL Eosinophils # (Auto) 0.1 0-0.8 10 ^3/uL Basophils # (Auto) 0 0-0.2 10 ^3/uL Nucleated Red Blood Cells 0.2 % Sodium Level 143 136-145 mmol/L Potassium Level 3.6 3.5-5.1 mmol/L Chloride Level 108 H 98-107 mmol/L Carbon Dioxide Level 23 20-31 mmol/L Anion Gap 12 5-15 Blood Urea Nitrogen 17 9-23 mg/dL Creatinine 1.35 H 0.700-1.30 mg/dL Glomerular Filtration Rate Calc 54 >90 mL/min BUN/Creatinine Ratio 12.6 10.0-20.0 Serum Glucose 113 H 74-106 mg/dL Calcium Level 8.5 L 8.7-10.4 mg/dL Total Bilirubin 0.7 0.2-1.0 mg/dL Aspartate Amino Transferase (AST) 20 13-40 U/L Alanine Aminotransferase (ALT) 27 7-40 U/L Alkaline Phosphatase 74 46-116 U/L Total Protein 6.7 5.7-8.2 g/dL Albumin 4.0 3.2-4.8 g/dL Thyroid Stimulating Hormone (TSH) 2.74 0.55-4.78 uIU/mL Assessment NSTEMI to rule out CAD. Rule out acute coronary syndrome. Hypertension. Type 2 diabetes. Hyperlipidemia. CKD. Hypothyroidism. Obesity. Plan/Recommendation I agree with your ongoing assessment and care of plan. Patient has been seen by Neisha Fuentes NP on my behalf, her and I discussed the plan with the patient. Continue telemetry monitoring. Trend troponins (already plateauing). Echocardiogram pending - to assess for LV function and wall motion abnormalities. Cardiolite adenosine stress test to evaluate for inducible ischemia. Optimize medical therapy for CAD risk factors. Additional plan as per the hospital course. Plan discussed with: Patient NYHA Physical activity limitations: NA Date of Service: Jun 16, 2025 Billing Provider: JENNIFFER PABON MD Cardiology Common Codes: 45878-[id number] INP/OBS CARE (High) Cardiology Consultation Codes: [id number] CONSULT <45MIN JENNIFFER PABON MD Jun 16, 2025 19:10
[2025-06-17 01:00] VITALS: BP 148/94; PULSE 78; RESP 18; TEMP 97.8; O2SAT 96
[2025-06-17 05:00] VITALS: BP 144/89; PULSE 77; RESP 18; TEMP 97.4; O2SAT 96
[2025-06-17 07:45] LABS: Hematocrit 37.3 % (41.0-53.0); Hemoglobin 12.8 g/dL (13.5-17.5); Mean Corpuscular Hemoglobin 30.8 pg (28.0-32.0); Mean Corpuscular Volume 89.6 fL (80.0-100.0); Nucleated Red Blood Cells % 0.5 %
[2025-06-17 08:00] VITALS: PULSE 76
[2025-06-17 08:19] LABS: Alanine Aminotransferase 25 U/L (7-40); Alkaline Phosphatase 79 U/L (46-116); Anion Gap 11 (5-15); BUN/Creatinine Ratio 8.9 (10.0-20.0); Blood Urea Nitrogen 11 mg/dL (9-23); Calcium 9.0 mg/dL (8.7-10.4); Carbon Dioxide 23 mmol/L (20-31); Chloride 105 mmol/L (98-107); Potassium 4.0 mmol/L (3.5-5.1); Sodium 139 mmol/L (136-145)
[2025-06-17 08:20] LABS: Total Protein 7.0 g/dL (5.7-8.2)
[2025-06-17 08:21] LABS: Albumin 4.2 g/dL (3.2-4.8); Bilirubin, Total 0.6 mg/dL (0.2-1.0)
[2025-06-17 08:25] LABS: Glucose 162 mg/dL (74-106)
[2025-06-17] MEDS: cefTRIAXone 1GM/50ML D5W 50 ML IV SCH (09:51)
--- NOTE | 2025-06-17 11:09 | DVHPN2 ---
Subjective Patient continues to report having urinary incontinence. Reviewed: Care Plan, H&P, Labs, Medications Changes from previous H/P or p: No Changes General: Per HPI Eyes: No Pain, No Vision change, No Conjunctivae inflammation, No Eyelid inflammation, No Other, No Redness ENT: No Ear pain, No Ear discharge, No Nose pain, No Nose discharge, No Nose congestion, No Mouth pain, No Mouth swelling, No Throat pain, No Throat swelling, No Other Cardiovascular: No Chest Pain, No Palpitations, No Orthopnea, No Paroxysmal Noc. Dyspnea, No Edema, No Lt Headedness, No Other Respiratory: No Cough, No Dry, No Shortness of breath, No SOB with excertion, No Wheezing, No Hemoptysis, No Pleuritic Pain, No Sputum, No Other Gastrointestinal: No Nausea, No Vomiting, No Abdominal Pain, No Diarrhea, No Constipation, No Melena, No Hematochezia, No Other Genitourinary: No Dysuria, No Frequency; Incontinence; No Hematuria, No Retention, No Other Musculoskeletal: No other, No neck pain, No shoulder pain, No arm pain, No back pain, No hand pain, No leg pain, No foot pain Skin: No Rash, No Lesions, No Jaundice, No Bruising, No Other Objective Vitals Vital Signs Date Time Temp Pulse Resp B/P (MAP) Pulse Ox O2 Delivery O2 Flow Rate FiO2 06/17/25 09:54 151/91 06/17/25 08:00 Room Air* 0 21 06/17/25 05:00 97.4 77 18 96 97.4 Intake/Output Intake and Output 06/17/25 07:00 Intake Total 300 ml Output Total 1600 ml Balance -1300 ml Intake Oral 300 ml Output Urine Total 1600 ml General Appearance: Alert, Oriented X3, Cooperative, No acute distress HEENT: Atraumatic, PERRLA Cardiovascular: Normal S1, Normal S2 Abdomen: Normal bowel sounds, Soft, No tenderness, No hepatospenomegaly, No masses Genitourinary: No Apparent Abnormalities Musculoskeletal: Normal sensory function, Normal motor function Neuro: Normal gait, Normal speech Skin: Dry, Intact Psych/Mental Status: Mental status NL, Mood NL Medications Current Medications Medications Dose Ordered Sig/Arsenio Route Start Time Stop Time Status Last Admin Dose Admin Ceftriaxone Sodium 50 ml @ 100 mls/hr DAILY@09 IV 06/17/25 09:00 06/17/25 09:51 100 MLS/HR Amlodipine Besylate 5 mg DAILY PO 06/16/25 10:00 06/17/25 09:53 5 MG Metoprolol Tartrate 25 mg BID PO 06/16/25 10:00 06/16/25 22:27 25 MG Atorvastatin Calcium 20 mg HS PO 06/16/25 22:00 06/16/25 22:26 20 MG Levothyroxine Sodium 175 mcg QAM@0600 PO 06/16/25 06:00 06/16/25 06:31 175 MCG Lisinopril 20 mg DAILY PO 06/16/25 10:00 06/17/25 09:54 20 MG Diagnostic Test (Pha) 1 strip ACHS 06/16/25 07:00 06/17/25 06:20 1 STRIP Insulin Human Regular ACHS SC 06/16/25 07:00 06/16/25 22:25 4 UNITS Dextrose 50 ml UD PRN IV 06/16/25 05:30 Sodium Chloride 10 ml Q8HR IV 06/16/25 06:00 06/17/25 06:08 10 ML Acetaminophen/ Hydrocodone Bitart 1 tab Q4HP PRN PO 06/16/25 05:30 Ondansetron HCl 4 mg Q4HP PRN IV 06/16/25 05:30 Docusate Sodium 100 mg BIDPRN PRN PO 06/16/25 05:30 Acetaminophen 650 mg Q6HP PRN PO 06/16/25 05:30 Nitroglycerin 0.4 mg Q5MINP PRN SL 06/16/25 05:30 Morphine Sulfate 2 mg Q30M PRN IV 06/16/25 05:30 Aspirin 81 mg DAILY PO 06/17/25 10:00 06/17/25 09:54 81 MG Laboratory Results Laboratory Tests 06/17/25 06:57 Chemistry Test 06/17/25 06:57 Albumin 4.2 g/dL (3.2-4.8) Calcium Level 9.0 mg/dL (8.7-10.4) Total Protein 7.0 g/dL (5.7-8.2) Coagulation Test 06/16/25 19:16 Prothrombin Time 10.3 sec (9.3-11.8) Prothrombin Time INR 0.97 (0.9-1.15) Activated Partial Thromboplast Time 26.4 SEC (24.5-34.5) LFT Test 06/17/25 06:57 Alanine Aminotransferase (ALT) 25 U/L (7-40) Alkaline Phosphatase 79 U/L (46-116) Aspartate Amino Transferase (AST) 23 U/L (13-40) Total Bilirubin 0.6 mg/dL (0.2-1.0) Urinalysis Test 06/16/25 14:30 Urine Color Colorless (Yellow) Urine Clarity Turbid (Clear) H Urine pH 6.5 (5.0-9.0) Urine Specific [place] 1.013 (1.001-1.035) Urine Protein Trace (Negative) H Urine Ketones Negative (Negative) Urine Blood 2+ /uL (Negative) H Urine Nitrite 2+ (Negative) H Urine Bilirubin Negative (Negative) Urine Urobilinogen Normal mg/dL (Negative) Urine Leukocyte Esterase 3+ /uL (Negative) Urine RBC 90 /hpf (0 - 3) Urine WBC Clumps Present /hpf (None Seen) Urine Microscopic WBC 263 /HPF (0-3) H Urine Squamous Epithelial Cells Few /hpf (<5) Urine Bacteria Many /hpf (None Seen) H Urine Mucus Few (None Seen) Urine Glucose Normal mg/dL (Normal) Microbiology Microbiology Date/Time Source Procedure Growth Status 06/16/25 14:30 Voided Urine Urine Culture - Preliminary Resulted 06/16/25 02:36 Blood Blood Culture - Preliminary NO GROWTH AFTER 24 HOURS OF INCUBATION. Resulted Labs and/or images reviewed: Labs reviewed by me, Image(s) reviewed by me Assessment/Plan Assessment/Plan Impression: -rule out ACS -urinary incontinence, with incomplete bladder emptying -diabetes mellitus -primary hypertension -dyslipidemia -probable obstructive sleep apnea -complicated cystitis, pyelonephritis -nonobstructive right renal calculi Plan: Events: No events overnight. Denies any chest pain, shortness of breath. Noted right flank pain with CVA tenderness. -echocardiogram: Reviewed -bladder scan -PSA : Pending -CT scan of the abdomen and pelvis : Findings discussed with the patient -cardiology consultation: Plans for Cardiolite stress test -regular insulin sliding scale -continue ACS protocol -transfer to [facility] after Cardiolite stress testing cleared by Cardiology. Total time spent with patient discussing and formulating plan of care: 35 minutes. This medical document was created using an electronic medical record system with Dragon computerized dictation system. Although this document has been carefully reviewed, there may still be some phonetic and typographical errors. These areas are purely typographical due to imperfections of the software programs, and do not reflect any compromise in the patient's medical care. Plan discussed with: Patient, Other (RN) My Orders Orders - RYAN FAIR NP Procedure Category Date Status Time Bladder Scan ED NURSING 06/16/25 Transmitted Psa Total+% Free LAB 06/16/25 In Process 12:48 Ct Ab Pel Wo Con-No CT 06/16/25 Resulted Oral Or Iv 12:48 Echo 2d Mode Cardiac US 06/16/25 Resulted DOP 12:48 * Senior Energy Analyst CONS 06/16/25 Transmitted Consult * Cardiology Consult CONS 06/16/25 Transmitted 12:56 * Senior Energy Analyst CONS 06/17/25 Verified Consult Date of Service: Jun 17, 2025 Billing Provider: RYAN FAIR NP Common Visit Codes: [id number] INP/OBS CARE(HIGH) RYAN FAIR NP Jun 17, 2025 11:09
[2025-06-17] MEDS: REGADENOSON 0.4 MG/5 ML SYRG IV ONE ×2 (14:34→14:39)
[2025-06-17 17:00] VITALS: BP 146/94; PULSE 84; RESP 17; TEMP 97.7; O2SAT 97
[2025-06-17 20:00] VITALS: PULSE 88
[2025-06-17 20:49] VITALS: BP 125/81; PULSE 89; RESP 18; TEMP 98.4; O2SAT 95
[2025-06-18] VITALS (8 sets, daily range): BP systolic 132–158; BP diastolic 85–97; PULSE 75–104; RESP 15–20; TEMP 97.9–98.6; O2SAT 95–97
--- NOTE | 2025-06-18 00:26 | DVHPN2 ---
Progress Note - Dictate Date Seen: Jun 17, 2025 Medical Necessity Reason Pt with a Central, PICC or Fol: No Subjective Patient was seen and evaluated in follow up. Patient is c/o urinary incontinence. BS elevated in the 200s. HDL 37. Telemetry reviewed. vital signs Vital Sign Date Time Temp Pulse Resp B/P (MAP) Pulse Ox O2 Delivery O2 Flow Rate FiO2 06/17/25 22:00 80 135/96 06/17/25 20:49 98.4 18 95 98.4 06/17/25 20:00 Room Air* 0 21 Total Intake and Output 06/17/25 06/17/25 06/18/25 15:00 23:00 07:00 Intake Total 200 ml Balance 200 ml medications Current Medications Medications Dose Ordered Sig/Arsenio Route Start Time Stop Time Status Last Admin Dose Admin Ceftriaxone Sodium 50 ml @ 100 mls/hr DAILY@09 IV 06/17/25 09:00 06/17/25 09:51 100 MLS/HR Amlodipine Besylate 5 mg DAILY PO 06/16/25 10:00 06/17/25 09:53 5 MG Metoprolol Tartrate 25 mg BID PO 06/16/25 10:00 06/16/25 22:27 25 MG Atorvastatin Calcium 20 mg HS PO 06/16/25 22:00 06/17/25 22:33 20 MG Levothyroxine Sodium 175 mcg QAM@0600 PO 06/16/25 06:00 06/16/25 06:31 175 MCG Lisinopril 20 mg DAILY PO 06/16/25 10:00 06/17/25 09:54 20 MG Diagnostic Test (Pha) 1 strip ACHS 06/16/25 07:00 06/17/25 22:00 1 STRIP Insulin Human Regular ACHS SC 06/16/25 07:00 06/17/25 22:00 4 UNITS Dextrose 50 ml UD PRN IV 06/16/25 05:30 Sodium Chloride 10 ml Q8HR IV 06/16/25 06:00 06/17/25 22:00 10 ML Acetaminophen/ Hydrocodone Bitart 1 tab Q4HP PRN PO 06/16/25 05:30 Ondansetron HCl 4 mg Q4HP PRN IV 06/16/25 05:30 Docusate Sodium 100 mg BIDPRN PRN PO 06/16/25 05:30 Acetaminophen 650 mg Q6HP PRN PO 06/16/25 05:30 Nitroglycerin 0.4 mg Q5MINP PRN SL 06/16/25 05:30 Morphine Sulfate 2 mg Q30M PRN IV 06/16/25 05:30 Aspirin 81 mg DAILY PO 06/17/25 10:00 06/17/25 09:54 81 MG objective GENERAL: Alert and oriented x 3. No acute distress. EYES: PERRL, EOMI. Anicteric. HENT: Moist mucous membranes. LUNGS: Clear to auscultation bilaterally. CARDIOVASCULAR: Regular rate and rhythm. ABDOMEN: Soft, nontender and nondistended. EXTREMITIES: No edema. NEUROLOGIC: No focal neurological deficits. SKIN: Warm, dry. laboratory and microbiology Laboratory Tests 06/17/25 06:57 Test 06/17/25 06:57 Range/Units Serum Glucose 162 H 74-106 mg/dL Problem List NSTEMI to rule out CAD. Rule out acute coronary syndrome. Hypertension. Type 2 diabetes. Hyperlipidemia. CKD. Hypothyroidism. Obesity. Assessment/Plan Continued all current supportive medical care. Morphine and [place] for pain management. Amlodipine, Lisinopril. Aspirin, Lipitor, Metoprolol. IV antibiotics as ordered. Nitro SL. Additional plan as per the hospital course. Plan discussed with: Patient JENNIFFER PABON MD Jun 18, 2025 00:26
[2025-06-18] MEDS ORDERED: VANCOMYCIN PER PHARMACY 0 MG IV SCH (08:30)
--- NOTE | 2025-06-18 10:24 | DVHDS2 ---
Discharge Summary Date of Admission Jun 16, 2025 at 06:13 Date of Discharge: Jun 18, 2025 Admitting Diagnosis Intermediate coronary syndrome Labs/Diagnostic Data: Laboratory Results Test 06/18/25 06:12 06/17/25 06:57 06/16/25 19:16 06/16/25 14:30 POC Glucose 166 mg/dl (70-106) White Blood Count 5.4 10^3/uL (4.4-10.8) Red Blood Count 4.16 10^6/uL (4.5-5.90) Hemoglobin 12.8 g/dL (13.5-17.5) Hematocrit 37.3 % (41.0-53.0) Mean Corpuscular Volume 89.6 fL (80.0-100.0) Mean Corpuscular Hemoglobin 30.8 pg (28.0-32.0) Mean Corpuscular Hemoglobin Concent 34.4 g/dL (32.0-36.0) Red Cell Distribution Width 14.6 % (11.8-14.3) Platelet Count 162 10^3/uL (140-450) Mean Platelet Volume 7.4 fL (6.9-10.8) Neutrophils (%) (Auto) 58.4 % (37.0-80.0) Lymphocytes (%) (Auto) 29.0 % (10.0-50.0) Monocytes (%) (Auto) 10.3 % (0.0-12.0) Eosinophils (%) (Auto) 1.6 % (0.0-7.0) Basophils (%) (Auto) 0.7 % (0.0-2.0) Neutrophils # (Auto) 3.2 10 ^3/uL (1.6-8.6) Lymphocytes # (Auto) 1.6 10 ^3/uL (0.4-5.4) Monocytes # (Auto) 0.6 10 ^3/uL (0-1.3) Eosinophils # (Auto) 0.1 10 ^3/uL (0-0.8) Basophils # (Auto) 0 10 ^3/uL (0-0.2) Nucleated Red Blood Cells 0.5 % Sodium Level 139 mmol/L (136-145) Potassium Level 4.0 mmol/L (3.5-5.1) Chloride Level 105 mmol/L (98-107) Carbon Dioxide Level 23 mmol/L (20-31) Anion Gap 11 (5-15) Blood Urea Nitrogen 11 mg/dL (9-23) Creatinine 1.24 mg/dL (0.700-1.30) Glomerular Filtration Rate Calc 60 mL/min (>90) BUN/Creatinine Ratio 8.9 (10.0-20.0) Serum Glucose 162 mg/dL (74-106) Calcium Level 9.0 mg/dL (8.7-10.4) Total Bilirubin 0.6 mg/dL (0.2-1.0) Aspartate Amino Transferase (AST) 23 U/L (13-40) Alanine Aminotransferase (ALT) 25 U/L (7-40) Alkaline Phosphatase 79 U/L (46-116) Total Protein 7.0 g/dL (5.7-8.2) Albumin 4.2 g/dL (3.2-4.8) Prothrombin Time 10.3 sec (9.3-11.8) Prothrombin Time INR 0.97 (0.9-1.15) Activated Partial Thromboplast Time 26.4 SEC (24.5-34.5) Urine Color Colorless (Yellow) Urine Clarity Turbid (Clear) Urine pH 6.5 (5.0-9.0) Urine Specific [place] 1.013 (1.001-1.035) Urine Protein Trace (Negative) Urine Ketones Negative (Negative) Urine Blood 2+ /uL (Negative) Urine Nitrite 2+ (Negative) Urine Bilirubin Negative (Negative) Urine Urobilinogen Normal mg/dL (Negative) Urine Leukocyte Esterase 3+ /uL (Negative) Urine RBC 90 /hpf (0 - 3) Urine WBC Clumps Present /hpf (None Seen) Urine Microscopic WBC 263 /HPF (0-3) Urine Squamous Epithelial Cells Few /hpf (<5) Urine Bacteria Many /hpf (None Seen) Urine Mucus Few (None Seen) Urine Glucose Normal mg/dL (Normal) Test 06/16/25 10:30 06/16/25 02:36 06/16/25 01:14 Erythrocyte Sedimentation Rate 18 mm/hr (0-20) Creatine Kinase 102 U/L (46-171) Troponin I High Sensitivity 88 ng/L (</=54) C-Reactive Protein High Sensitivity 5.29 mg/dL (<1.0) Triglycerides Level 104 mg/dL (< 150) Cholesterol Level 120 mg/dL (< 200) LDL Cholesterol 66 mg/dL (< 100) HDL Cholesterol 37 mg/dL (40-59) Lactic Acid Level 0.8 mmol/L (0.4-2.0) Hemoglobin A1c 7.7 % A1C (<5.7) Thyroid Stimulating Hormone (TSH) 2.74 uIU/mL (0.55-4.78) Other Laboratory Tests 06/17/25 06:57 Brief Hx & Hospital Course: History of Present Illness The patient is a 75-year-old male morbidly obese with past medical history of diabetes mellitus, hyperlipidemia, thyroid disease, and hypertension who presented to [facility] ED with complaint of urinary incontinence and generalized weakness. Patient reports he went to [facility] urgent care earlier, diagnosed chest were done, noted elevated troponin levels. Patient was seen and evaluated in the ED, laboratory data shows WBC 6.8, platelets 183, sodium 142, potassium 3.7, BUN 19, creatinine 1.48, glucose 124, calcium 9.2, troponin 97, blood pressure 148/92, heart rate 85, temperature 98.6 F, O2 saturation 96% on room air. Please see medication orders section in the computer. On my assessment, patient denied chest pain, no headache, no dizziness, no diaphoresis, no shortness of breaths, no abdominal pain, no dysuria, no nausea, no vomiting, no fever, no chills. Patient was admitted for further evaluation and medical management. Course of hospitalization: Patient did have troponins that were elevated, but equivocal. EKG without any ST changes. Cardiology consultation was obtained. Echocardiogram with ejection fraction 55%. Patient was started on antibiotic therapy with Rocephin, with vancomycin add and given blood culture positive for Gram-positive cocci. Patient did have CT scan of the abdomen and pelvis which reviewed nonobstructive nephrolithiasis, with the impression of pyelonephritis to right kidney. Patient states that his symptoms have improved. He is now stable to be transferred to [facility]. Recommend to be evaluated by Urology at their facility for future ESWL once acute infection has improved. Patient is agreeable this plan of care. All questions answered. Physical examination General: Alert and Oriented x3. No acute distress. Well-nourished. Eyes: EOMI. Anicteric. HENT: Moist mucous membranes. Lungs: Clear to auscultation bilaterally. No accessory muscle use. Cardiovascular: Regular rate and rhythm. No murmur. No JVD. Abdomen: Soft, non-tender and non-distended. No palpable masses. Extremities: No edema. Non-tender. Skin: No rashes or lesions. Warm. Neurologic: No focal neurological deficits. CN II-XII grossly intact, but not individually tested. Psychiatric: Cooperative. Appropriate mood and affect. Total time spent with patient discussing and formulating plan of care: 35 minutes. This medical document was created using an electronic medical record system with [employer] dictation system. Although this document has been carefully reviewed, there may still be some phonetic and typographical errors. These areas are purely typographical due to imperfections of the software programs, and do not reflect any compromise in the patient's medical care. Consults/Reason for consult Cardiology: Elevated troponin, rule out ACS Condition at Discharge: Fair Final Diagnosis/Problems List NSTEMI type 2. Complicated cystitis Secondary diagnosis: -rule out ACS -urinary incontinence, with incomplete bladder emptying -diabetes mellitus -primary hypertension -dyslipidemia -probable obstructive sleep apnea -complicated cystitis, pyelonephritis -nonobstructive right renal calculi Discharge Disposition: Acute Care Facility Discharge Instruct/Medications Diet: Consistent carbohydrate, Cardiac 2g Na,low cholest Activity: No Restrictions, As Tolerated Follow Up/Referral: Per accepting provider Medications: Refer to medication reconciliation form Unable to Obtain Active Prescriptions or Reported Meds 36 Discharge Statement: "Patient was advised to return to the ER or call 911 if any headaches, dizziness, shortness of breath, chest pain, abdominal pain, bleeding, fevers, or worsening of medical condition. Patient was counseled about treatment plan, medications, possible side effects, patientverbalized understanding. All questions were answered to the best of my ability. This discharge took greater then 30 minutes in planning, reviewing documentation, counseling the patient, and discussing with other team members." ASSESSMENT ASSESSMENT Assessment NSTEMI type 2. Complicated cystitis Date of Service: Jun 18, 2025 Billing Provider: RYAN FAIR NP Common Visit Codes: 58545-CZW/OBS DISCH DAY >30min RYAN FAIR NP Jun 18, 2025 10:24
--- NOTE | 2025-06-18 10:48 | DVHSR ---
APPROVED REPORT Exam: Nuclear Stress Test Indication: r/o CAD Stress Tech: Jacquelin Mackay Ht: 6 ft 2 in Wt: 273 lbs BSA: 2.48 m2 HR: 88 bpm BP: 142/92 mmHg BMI: 35.04 Rhythm: NSR with notched p wave Medical History Medical History: Obesity, HLD, DM, HTN, Hypothyroidism Allergies: No known drug allergies Stress Test Details Stress Test: Pharmacologic stress testing performed using 0.4 mg of regadenoson per 5 mL given IV ov er 10 seconds. Reason for pharmacologic stress test: r/o CAD. HR Resting HR: 88 bpmMax Heart Rate (APMHR): 143.543478 bpm Max HR Achieved: 102 bpmTarget HR (85% APMHR): 121.246541 bpm % of APMHR: 71.33 Recovery HR: 95 bpm BP Resting BP: 142/92 mmHg Recovery BP: 133/73 mmHg ECG Resting ECG: NSR with notched P wave Clinical Reason for Termination: Completed protocol Stress ECG Conclusion lvef 56% inferior wall infarct LAD on ecg no major ischemia noted NM EXAM: Myocardial Perfusion REST/STRESS Imaging Protocol: Rest Tc-99m/Stress Tc-99m 1 day Resting Data Rest SPECT myocardial perfusion imaging was performed in supine position 45 minutes following the int ravenous injection of 9.8 mCi of Tc-99m Sestamibi. Time of rest injection: 13:31 Time of rest imagin:16 Administration Route: IV Administration Site: Right Arm Pharmacologic Stress Pharmacologic stress test was performed by injecting Regadenoson 0.4 mg IV push followed by the intra venous injection of 32.1 mCi of Tc-99m Sestamibi. Time of stress injection: 14:34 Date: 06/17/2025 Time of stress imagin:34 Date: 06/17/2025 Administration Route: IV Administration Site: Right Arm Gated Stress SPECT was performed 60 minutes after stress injection. The images were gated to evaluate regional wall motion and calculate left ventricular ejection fracti on. Stress only was performed in the Supine position. Nuclear Conclusion Nuclear Findings: negative for ischemia lvef 56% inferior wall infarct LAD on ecg no major ischemia noted
[2025-06-18 11:07] LABS: Prostate Specific Antigen 1.1 ng/mL (0.0-4.0)
[2025-06-18] MEDS: VANCOMYCIN 1GM/250ML KIT 250 ML IV SCH (11:33)
--- NOTE | 2025-06-18 21:55 | DVHPN2 ---
Progress Note - Dictate Date Seen: Jun 18, 2025 Medical Necessity Reason Pt with a Central, PICC or Fol: No Subjective Patient was seen and evaluated in follow up. Patient has no new complaints at this time. Patient is being arranged for transfer to [facility]. Telemetry reviewed. vital signs Vital Sign Date Time Temp Pulse Resp B/P (MAP) Pulse Ox O2 Delivery O2 Flow Rate FiO2 06/18/25 21:00 98.2 90 15 151/85 (107) 96 98.2 06/18/25 08:00 Room Air* 0 21 Total Intake and Output 06/17/25 06/17/25 06/18/25 15:00 23:00 07:00 Intake Total 200 ml 480 ml Output Total 560 ml Balance 200 ml -80 ml objective GENERAL: Alert and oriented x 3. No acute distress. EYES: PERRL, EOMI. Anicteric. HENT: Moist mucous membranes. LUNGS: Clear to auscultation bilaterally. CARDIOVASCULAR: Regular rate and rhythm. ABDOMEN: Soft, nontender and nondistended. EXTREMITIES: No edema. NEUROLOGIC: No focal neurological deficits. SKIN: Warm, dry. laboratory and microbiology Laboratory Tests 06/17/25 06:57 Test 06/17/25 06:57 Range/Units Serum Glucose 162 H 74-106 mg/dL Problem List NSTEMI to rule out CAD. Rule out acute coronary syndrome. Hypertension. Type 2 diabetes. Hyperlipidemia. CKD. Hypothyroidism. Obesity. Assessment/Plan Continued all current supportive medical care. Morphine and [place] for pain management. Amlodipine, Lisinopril. Aspirin, Lipitor, Metoprolol. IV antibiotics as ordered. Nitro SL. Additional plan as per the hospital course. A total of 25 minutes was spent reviewing the patient record, examining the patient, making a diagnostic and therapeutic plan, discussing this plan with medical personnel, following up on diagnostic studies and following the patient for clinical stability excluding any and all procedures. At least 50% of this time was spent in direct, [id number] contact. Plan discussed with: Patient JENNIFFER PABON MD Jun 18, 2025 21:55
== END 2025-06-18 20:45 | disposition short-term general hospital (02) | DRG 689 ==
LOC: ER 21:46 → EDBD 21:46 → UNDOADMIN 06-16 05:18 → OVERFLOW 06-16 05:18 → TELE-WESTW 06-16 16:03
PROVIDERS: ADMIT Nurse Practitioner Acute Care; ATTEND Nurse Practitioner Acute Care
DX: N30.90 Cystitis, unspecified without hematuria (principal); I21.A1 Myocardial infarction type 2; N12 Tubulo-interstitial nephritis, not specified as acute or chronic; E78.5 Hyperlipidemia, unspecified; N18.30 Chronic kidney disease, stage 3 unspecified; E03.9 Hypothyroidism, unspecified; I12.9 Hypertensive chronic kidney disease with stage 1 through stage 4 chronic kidney disease, or unspecified chronic kidney disease; E11.22 Type 2 diabetes mellitus with diabetic chronic kidney disease; N20.0 Calculus of kidney; G47.33 Obstructive sleep apnea (adult) (pediatric); E66.01 Morbid (severe) obesity due to excess calories; Z68.28 Body mass index [BMI] 28.0-28.9, adult; Z79.899 Other long term (current) drug therapy
CPT/HCPCS: 36415; 71045; 74176; 78452; 80053; 80061; 81001; 82550; 82962; 83036; 83605; 84154; 84443; 84484; 85025; 85610; 85652; 85730; 86141; 87040; 87077; 87086; 93005; 93017; 93306; 96360; 99291; G0378; J1815

== ENCOUNTER 2025-10-07 12:28 | Emergency (ER) | payer OTHER ==
[~2025-10-07] VITALS: Ht 193 cm; Wt 110.0 kg
--- NOTE | 2025-10-07 14:24 | ED.PDOC ---
Back pain HPI HPI Comments The patient presented with a fall at home, resulting in neck, right shoulder, and back pain. The patient reported falling last night in the kitchen after feeling unsteady, hitting their head and knees against the wall. The patient experienced neck pain, right shoulder pain, and pain in the back muscles. The patient described the pain as throbbing and rated it as seven to eight on a scale of ten. The patient does not report tripping over anything and mentioned using a walker and cane but does not regularly use them. The patient has type 2 diabetes and a history of hydrocephalus with a shunt placement. The patient is not on blood thinners but could not provide a list of current medications. The patient does not report any other significant medical history or allergies. Denies history of chronic steroid use or history of osteoporosis Denies history of cancer Denies fevers chills night sweats nausea vomiting unintentional weight loss Denies abdominal tearing pain Denies syncope Denies urinary changes or urinary incontinence Denies numbness tingling of the groin/inner thigh Denies previous back procedures or surgeries Chief Complaint: Neck Pain Time Seen by MD: 14:05 Reviewed Notes: Nurses Notes, Medications, Allergies Allergies: Coded Allergies: NO KNOWN ALLERGIES (Unverified , 06/16/25) VERIFIED Home Meds Unable to Obtain Active Prescriptions or Reported Meds Information Source: Patient Mode of Arrival: EMS Timing: Hours Duration: Since onset, Hours Severity: Moderate Prehospital treatment: None Quality: Aching Onset: Fall History of: None Associated signs and symptoms: None Past Medical History PAST MEDICAL HISTORY: DM, High Lipids, HTN Surgical History: Denies all surgeries Family History Family History: Reviewed,noncontributory to illness, Unknown Social History Smoker: Non-Smoker Alcohol: Denies ETOH Use Drugs: Denies Drug Use Lives In: Home Constitutional: denies: chills, diaphoresis, fatigue, fever, malaise, sweats, weakness, others EENTM: denies: blurred vision, double vision, ear bleeding, ear discharge, ear drainage, ear pain, ear ringing, eye pain, eye redness, hearing loss, mouth pain, mouth swelling, nasal discharge, nose bleeding, nose congestion, nose pain, photophobia, tearing, throat pain, throat swelling, voice changes, others Respiratory: denies: cough, hemoptysis, orthopnea, SOB at rest, shortness of breath, SOB with excertion, stridor, wheezing, others Cardiovascular: denies: chest pain, dizzy spells, diaphoresis, Dyspnea on exertion, edema, irregular heart beat, left arm pain, lightheadedness, palpitations, PND, syncope, others Gastrointestinal: denies: abdomen distended, abdominal pain, blood streaked bowels, constipated, diarrhea, dysphagia, difficulty swallowing, hematemesis, melena, nausea, poor appetite, poor fluid intake, rectal bleeding, rectal pain, vomiting, others Genitourinary: denies: burning, dysuria, flank pain, frequency, hematuria, incontinence, penile discharge, penile sore, pain, testicle pain, testicle swelling, urgency, others Neurological: denies: dizziness, fainting, headache, left sided numbness, left sided weakness, numbness, paresthesia, pre-existing deficit, right sided numbness, right sided weakness, seizure, speech problems, tingling, tremors, weakness, others Musculoskeletal: reports: back pain, neck pain, others (Right shoulder pain); denies: gout, joint pain, joint swelling, muscle pain, muscle stiffness Integumetry: denies: bruises, change in color, change in hair/nails, dryness, laceration, lesions, lumps, rash, wounds, others Allergic/Immunocompromised: denies: Difficulty Healing, Frequent Infections, Hives, Itching, others Hematologic/Lymphatic: denies: anemia, blood clots, easy bleeding, easy bruising, swollen glands, others Endocrine: denies: excessive hunger, excessive sweating, excessive thirst, excessive urination, flushing, intolerance to cold, intolerance to heat, unexplained weight gain, unexplained weight loss, others Psychiatric: denies: anxiety, bipolar disorder, depression, hopeless, panic disorder, schizophrenia, sleepless, suicidal, others All Other Systems: Reviewed and Negative Physical Exam Exam Comments Patient appeared alert and oriented. Cardiac, Respiratory: Lung sounds were normal. Musculoskeletal: Patient reported pain in the neck, right shoulder, and back muscles. Neurological: Patient reported falling and hitting the head, but no neurological deficits were mentioned. General Appearance: No Apparent Distress, Normal HEENT: Normal ENT Inspection, Pharynx Normal, TMs Normal Neck: Full Range of Motion, Non-Tender, Normal, Normal Inspection Respiratory: Chest Non-Tender, Lungs Clear, No Accessory Muscle Use, No Respiratory Distress, Normal Breath Sounds Cardiovascular: No Edema, No JVD, No Murmur, No Gallop, Normal Peripheral Pulses, Regular Rate/Rhythm Breast Exam: Deferred Gastrointestinal: No Organomegaly, Non Tender, No Pulsatile Mass, Normal Bowel Sounds, Soft Genitalia: Deferred Pelvic: Deferred Rectal: Deferred Extremities: No calf tenderness, Normal capillary refill, Normal inspection, Normal range of motion, Non-tender, No pedal edema Musculoskeletal : Apperance: Normal Neurologic: Alert, post commander II-XII nml as Tested, No Motor Deficits, Normal Affect, Normal Mood, No Sensory Deficits Cerebellar Function: Normal Reflexes: Normal Skin: Dry, Normal Color, Warm Lymphatic: No Adenopathy Was a procedure done? Was a procedure done?: No Back Pain Differential Dx Differential Diagnosis: Other X-Ray, Labs, Meds, VS Vital Signs Date Time Temp Pulse Resp B/P (MAP) Pulse Ox O2 Delivery O2 Flow Rate FiO2 10/07/25 16:51 84 16 97 Room Air 10/07/25 16:51 97.8 84 16 157/95 (115) 97 97.8 10/07/25 15:41 82 18 143/91 (108) 97 10/07/25 12:28 98.9 92 18 164/96 98 98.9 Lab Test 10/07/25 14:34 Range/Units White Blood Count 9.0 4.4-10.8 10^3/uL Red Blood Count 4.84 4.5-5.90 10^6/uL Hemoglobin 14.1 13.5-17.5 g/dL Hematocrit 42.5 41.0-53.0 % Mean Corpuscular Volume 87.8 80.0-100.0 fL Mean Corpuscular Hemoglobin 29.2 28.0-32.0 pg Mean Corpuscular Hemoglobin Concent 33.3 32.0-36.0 g/dL Red Cell Distribution Width 14.9 H 11.8-14.3 % Platelet Count 221 140-450 10^3/uL Mean Platelet Volume 7.6 6.9-10.8 fL Neutrophils (%) (Auto) 77.0 37.0-80.0 % Lymphocytes (%) (Auto) 16.3 10.0-50.0 % Monocytes (%) (Auto) 5.7 0.0-12.0 % Eosinophils (%) (Auto) 0.7 0.0-7.0 % Basophils (%) (Auto) 0.3 0.0-2.0 % Neutrophils # (Auto) 6.9 1.6-8.6 10 ^3/uL Lymphocytes # (Auto) 1.5 0.4-5.4 10 ^3/uL Monocytes # (Auto) 0.5 0-1.3 10 ^3/uL Eosinophils # (Auto) 0.1 0-0.8 10 ^3/uL Basophils # (Auto) 0 0-0.2 10 ^3/uL Nucleated Red Blood Cells 0.2 % Sodium Level 142 136-145 mmol/L Potassium Level 4.4 3.5-5.1 mmol/L Chloride Level 103 98-107 mmol/L Carbon Dioxide Level 27 20-31 mmol/L Anion Gap 12 5-15 Blood Urea Nitrogen 17 9-23 mg/dL Creatinine 1.44 H 0.700-1.30 mg/dL Glomerular Filtration Rate Calc 50 >90 mL/min BUN/Creatinine Ratio 11.8 10.0-20.0 Serum Glucose 173 H 74-106 mg/dL Calcium Level 9.7 8.7-10.4 mg/dL [place] [address] Ph: [phone] DIAGNOSTIC IMAGING Diagnostic Imaging Report : [id number] Signed PATIENT: AZAM SMITH ACCT: [id number] UNIT: [id number] : 1950 LOC: ER ROOM / BED: / AGE / SEX: 75 / M ADM STATUS: REG ER SERVICE 1408 ORDERING PHYSICIAN: CAROL MCGUIRE NP PROCEDURE(s): CS2 - CERVICAL WITHOUT CONTRAST REASON: Fall ORDER NUMBER(s): [id number], ACCESSION NUMBER(s): [id number] EXAM: CT CERVICAL WITHOUT CONTRAST INDICATION: Fall EXAM DATE: 10/07/2025 02:16 PM COMPARISON: None TECHNIQUE: Multiple axial CT images of the cervical spine were obtained using bone algorithm. Axial and coronal reformatting was done. Bone and soft tissue windows were reviewed. Radiation Dose Information: CT Dose: CTDI volume is 28.58 mGy. Dose-length product is 2439.36 mGy*cm FINDINGS: Acute comminuted mildly displaced right sided C6 facet and lamina fracture. 7 [id number] cervical type vertebrae. Reversal of the cervical lordosis. The vertebral body heights relatively maintained. Facets of C3 and C4 partial fusion of the vertebral bodies of C3 and C4. Multilevel moderate to severe degenerative changes of the cervical spine. Multilevel anterior bridging osteophytes of the cervical spine. Mild left-sided neural foramina stenosis at C2-C3, [id number] bilateral neural foramina stenosis at C3-C4, severe bilateral neural foramina stenosis at C4-C5, C5-C6 and C6-C7, uncovertebral hypertrophy and facet osteoarthritis. Severe right with Moderate left-sided neural foramina stenosis at C7-T1. Moderate spinal canal stenosis at C4-C5. Otherwise, Multilevel mild spinal canal stenosis Prevertebral soft tissues unremarkable. 1 cm left submandibular lymph node which may be reactive. Nonspecific wall thickening of the proximal esophagus. The thyroid gland is unremarkable. 1.5 x 0.8 cm left apical nodular lesion. Partially visualized right sided ventriculoperitoneal shunt catheter. IMPRESSION: Acute comminuted mildly displaced fracture of the right C6 facet and lamina. Critical Result: Right-sided C6 lamina and facet fracture. Findings discussed with Onel Mcguire, at 10/07/2025 03:00 PM, and acknowledged receipt and understanding of the findings. X-Ray, Labs, Meds, VS Comment Patient arrives alert and oriented, ABC's intact, afebrile, vital signs stable, saturating well in room air ASSESSMENT: The patient likely experienced a mechanical fall possibly related to instability or weakness. The reported pain in the neck, right shoulder, and back muscles may be due to soft tissue injury from the fall. The history of hydrocephalus with shunt placement raises concerns for potential intracranial injury, though the shunt is managing the condition. Tests: - Ordered a head CT and neck CT to assess for any intracranial injury or cervical spine injury. - Ordered blood work to evaluate electrolytes, signs of anemia, and kidney function. - Advised the patient to wear a cervical collar until imaging results are reviewed. C spine CT showed: Acute comminuted mildly displaced fracture of the right C6 facet and lamina. Critical Result: Right-sided C6 lamina and facet fracture. Will initiate transfer to [facility] (15:17) , Pt stable. 15:[address] JESSICA post traking number: [phone] Time of 1ST Reevaluation: 14:35 Reevaluation 1ST: Unchanged Patient Education/Counseling: Diagnosis, Treatment, Prognosis Family Education/Counseling: No Family Present SEPSIS Sepsis Screen Date sepsis recognized/suspect: Oct 07, 2025 Time Sepsis recognized/suspect: 1238 Recent Procedure: No On Antibiotic Therapy: No Respiratory Rate >20: No Heart Rate >90: No Temp<36 C (96.8 F) or >38.3 C: No SBP <90 or MAP <65 mmHG: No New Acute Mental Status Change: No Is the patient on CPAP, BIPAP,: No Physician Orders Head Without Contrast (10/07/25 14:08) Cervical Without Contrast (10/07/25 14:08) R Shoulder 2+ View Xray (10/07/25 14:08) Electrocardigram (10/07/25 15:19) Imaging Transfer Request (10/07/25 15:26) Vital Signs Date Time Temp Pulse Resp B/P (MAP) Pulse Ox O2 Delivery O2 Flow Rate FiO2 10/07/25 16:51 84 16 97 Room Air 10/07/25 16:51 97.8 84 16 157/95 (115) 97 97.8 10/07/25 15:41 82 18 143/91 (108) 97 10/07/25 12:28 98.9 92 18 164/96 98 98.9 Laboratory Tests Test 10/07/25 14:34 White Blood Count 9.0 10^3/uL (4.4-10.8) Departure 1 Departure Time of Disposition: 15:18 Impression: Primary Impression: Cervical compression fracture Qualified Codes: S12.590A - Other displaced fracture of sixth cervical vertebra, initial encounter for closed fracture Disposition: 51 HOSPICE/MEDICAL FACILITY Condition: Serious e-Prescriptions Unable to Obtain Active Prescriptions or Reported Meds Critical Care Note Critical Care Time?: No Stability Stability form required: No Heart Score Heart Score: Heart Score Response (Comments) Value History N/A 0 EKG N/A 0 Age N/A 0 Risk Factors N/A 0 Troponin N/A 0 Total 0 I personally scribed for CAROL MCGIURE NP ([email or web address]) on 10/07/25 at 14:24. Electronically submitted by Raulito Garcia ([email or web address]). CAROL MCGUIRE NP Oct 07, 2025 14:24
--- NOTE | 2025-10-07 14:48 | DVH ---
CLINICAL INDICATION: Fall, pain TECHNIQUE: XYXY R SHOULDER 2+ VIEW XRAY Comparison: None FINDINGS/IMPRESSION: : There is no evidence of acute fracture or dislocation. Soft tissues are unremarkable.
--- NOTE | 2025-10-07 14:49 | DVH ---
EXAM: CT HEAD WITHOUT CONTRAST INDICATION: Fall TECHNIQUE: CT of the head without intravenous contrast. Radiation Dose Information: CT Dose: CTDI volume is 28.58 mGy. Dose-length product is 899.63 mGy*cm The dose indicators for CT are the volume Computed Tomography (CT) Dose Index (CTDIvol) and the Dose Length Product (DLP), and are measured in units of mGy and mGy-cm, respectively. These indicators are not patient dose, but values generated from the CT scanner acquisition factors. The report includes radiation exposure data for exposures received during this examination. COMPARISON: None FINDINGS: Right frontal approach NURSING SECRETARY shunt. There is no evidence of acute intracranial hemorrhage, extra-axial collection, mass effect, midline shift, herniation or hydrocephalus. The ventricles, sulci and cisterns are age appropriate. The drummond-white differentiation is intact. Patchy periventricular and subcortical white matter hypoattenuation is nonspecific but may be related to small vessel ischemic disease. The visualized paranasal sinuses and mastoid air cells are clear. The surrounding soft tissues and osseous structures are unremarkable. IMPRESSION: No acute intracranial abnormality.
[2025-10-07 15:00] LABS: Hematocrit 42.5 % (41.0-53.0); Hemoglobin 14.1 g/dL (13.5-17.5); Mean Corpuscular Hemoglobin 29.2 pg (28.0-32.0); Mean Corpuscular Volume 87.8 fL (80.0-100.0); Nucleated Red Blood Cells % 0.2 %
[2025-10-07 15:05] LABS: Chloride 103 mmol/L (98-107); Potassium 4.4 mmol/L (3.5-5.1); Sodium 142 mmol/L (136-145)
--- NOTE | 2025-10-07 15:05 | DVH ---
EXAM: CT CERVICAL WITHOUT CONTRAST INDICATION: Fall EXAM DATE: 10/07/2025 02:16 PM COMPARISON: None TECHNIQUE: Multiple axial CT images of the cervical spine were obtained using bone algorithm. Axial and coronal reformatting was done. Bone and soft tissue windows were reviewed. Radiation Dose Information: CT Dose: CTDI volume is 28.58 mGy. Dose-length product is 2439.36 mGy*cm FINDINGS: Acute comminuted mildly displaced right sided C6 facet and lamina fracture. 7 eyo-wci-gnyizpy cervical type vertebrae. Reversal of the cervical lordosis. The vertebral body heights relatively maintained. Facets of C3 and C4 partial fusion of the vertebral bodies of C3 and C4. Multilevel moderate to severe degenerative changes of the cervical spine. Multilevel anterior bridging osteophytes of the cervical spine. Mild left-sided neural foramina stenosis at C2-C3, [id number] bilateral neural foramina stenosis at C3-C4, severe bilateral neural foramina stenosis at C4-C5, C5-C6 and C6-C7, uncovertebral hypertrophy and facet osteoarthritis. Severe right with Moderate left-sided neural foramina stenosis at C7-T1. Moderate spinal canal stenosis at C4-C5. Otherwise, Multilevel mild spinal canal stenosis Prevertebral soft tissues unremarkable. 1 cm left submandibular lymph node which may be reactive. Nonspecific wall thickening of the proximal esophagus. The thyroid gland is unremarkable. 1.5 x 0.8 cm left apical nodular lesion. Partially visualized right sided ventriculoperitoneal shunt catheter. IMPRESSION: Acute comminuted mildly displaced fracture of the right C6 facet and lamina. Critical Result: Right-sided C6 lamina and facet fracture. Findings discussed with Onel Mcguire, at 10/07/2025 03:00 PM, and acknowledged receipt and understanding of the findings. ..
[2025-10-07 15:06] LABS: Anion Gap 12 (5-15); Carbon Dioxide 27 mmol/L (20-31)
[2025-10-07 15:07] LABS: Calcium 9.7 mg/dL (8.7-10.4)
[2025-10-07 15:11] LABS: BUN/Creatinine Ratio 11.8 (10.0-20.0); Blood Urea Nitrogen 17 mg/dL (9-23)
[2025-10-07 15:12] LABS: Glucose 173 mg/dL (74-106)
[2025-10-07 16:51] VITALS: BP 157/95; PULSE 84; RESP 16; TEMP 97.8; O2SAT 97
== END 2025-10-07 15:15 | disposition short-term general hospital (02) ==
LOC: ER 12:28 → EDBD 12:28 → ER 15:15
DX: S12.190A Other displaced fracture of second cervical vertebra, initial encounter for closed fracture (principal); M25.511 Pain in right shoulder; E11.9 Type 2 diabetes mellitus without complications; I10 Essential (primary) hypertension; W18.39XA Other fall on same level, initial encounter; Y93.89 Activity, other specified; Y92.090 Kitchen in other non-institutional residence as the place of occurrence of the external cause; Y99.8 Other external cause status
CPT/HCPCS: 36415; 70450; 72125; 73030; 80048; 85025